=== PATIENT | male | born 1945 | race Caucasian/White ===

== ENCOUNTER 2017-11-25 11:01 | Inpatient (IN) ==
--- NOTE | 2017-11-25 11:52 | Emergency Department Note ---
Disposition Clinical Impression: Cellulitis Qualifiers: Site of cellulitis: unspecified site Qualified Code(s): L03.90 - Cellulitis, unspecified Disposition: Admitted As Inpatient Referrals: Samuel Dominique DO [Primary Care Provider] - Forms: ED Satisfaction Letter General Adult HPI - General Chief complaint: ED Extremity Problem,Nontraumatic Stated complaint: skin problem Time Seen by Provider: 11/25/17 11:10 Source: patient Mode of arrival: ambulatory Limitations: no limitations Nursing Notes Reviewed: Yes Vital Signs Reviewed: Yes - History of Present Illness HPI Narrative: 72 year old man who presents to ED with R knee and L elbow pain/swelling/drainage for 5 days that has been worsening. Said it started as a small "pimple" and has been getting larger and burst open with purulent drainage and expanding redness with streaking down leg and tightness of surrounding skin with increased heat. He was evaluated in [place] ED 2 days ago and given keflex for cellulitis and sent home. Denies trauma, insect bite, excoriation prior to symptoms starting. He says it has not improved in 2 days and that's why came here today. Says having pain with movement of R knee and trouble walking due to pain. R knee replacement 10 years ago. He additionally complains of subjective fever/chills. Says he has been told is diabetic but not on meds and trying to control with diet now. Pt Subjective Complaint: R leg pain Onset (ago): day(s) Location: right, lower extremity Radiation: non-radiation Pain Severity: moderate Pain Scale: 7 Quality: burning Consistency: Worsening Improves with: rest Worsens with: movement Associated symptoms: Reports: fever/chills Treatments Prior to Arrival: other (keflex 2 days) - Related Data Home Medications Medication Instructions Recorded Confirmed Buspirone HCl [Buspar] 10 mg PO BID 02/11/15 11/25/17 Oxybutynin Chloride [Ditropan Xl] 10 mg PO DAILY 02/11/15 11/25/17 Sertraline [Zoloft] 150 mg PO DAILY 02/11/15 11/25/17 Allopurinol [Zyloprim 300 MG] 300 mg PO DAILY 11/25/17 11/25/17 Iron Polysaccharide Complex [Pro 1 cap PO DAILY 11/25/17 11/25/17 Fe] Metoprolol Succinate 25 mg PO DAILY 11/25/17 11/25/17 Warfarin Sodium 10 mg PO DAILY 11/25/17 11/25/17 Previous Rx's Medication Instructions Recorded Aspirin 81 mg PO DAILY 30 Days tab.chew 02/14/15 Atorvastatin [Lipitor] 40 mg PO HS 30 Days tablet 02/14/15 Allergies Allergy/AdvReac Type Severity Reaction Status Date / Time No Known Allergies Allergy Verified 11/25/17 13:55 All systems ED: reviewed and negative except as stated. Constitutional: Reports: fever, chills Eyes: Denies: vision change Cardiovascular: Denies: chest pain Respiratory: Denies: dyspnea Gastrointestinal: Denies: abdominal pain Genitourinary: Denies: dysuria, frequency Musculoskeletal: Reports: joint swelling Integumentary: Reports: other (R knee, L elbow red, swollen, draining) Neurological: Denies: numbness, paresthesias Past Medical History - Past Medical History Medical history: Reports: arthritis, atrial fibrillation, hyperlipidemia, hypertension, myocardial infarction Surgical history: Reports: coronary bypass (CABG), knee replacement Psychiatric history: Reports: depression - Social History Smoking Status: Former smoker Smokeless Tobacco Status: No Alcohol use: Reports: none Drug use: Reports: none Physical Exam - General Limitations: no limitations General appearance: alert, in no apparent distress - Head Head exam: atraumatic, normocephalic, normal inspection - Eye Eye exam: Present: normal appearance - ENT ENT exam: mucous membranes moist - Neck Neck exam: Present: trachea midline - Chest Chest inspection: Present: normal inspection, symmetric chest wall rise - Respiratory Respiratory exam: Present: normal lung sounds bilaterally - Cardiovascular Cardiovascular exam: Present: regular rate, normal rhythm, normal heart sounds, +S1, +S2 - Extremities Exam Extremities exam: Present: tenderness, joint swelling, other (R knee 6x6 open, purulent draining, lesion with honey crusting, and expanding erythema and tender to palpation and increased heat and tightness surrounding joint. L elbow 2x2cm raised tender lesion with central scab without erythema or drainage. ). Absent: full ROM, pedal edema - Expanded Lower Extremity Exam Knee exam: Present: tenderness, swelling, erythema. Absent: normal inspection, full ROM - Neurological Exam Neurological exam: Present: alert - Psychiatric Psychiatric exam: Present: normal affect - Skin Skin exam: Present: warm, dry, erythema. Absent: intact Course Course Narrative: R knee drainage, heat, honey crusting treated with keflex x2 days along with L elbow raised lesion without drainage. Likely MRSA cellulitis and why keflex not improving lesion. Will I&D L elbow, CT R knee for possible septic joint along with esr, cbc in afebrile pt for Ayah criteria. 1220: wbc 7.1, hgb 8.4 (11.1 on 09/13/17), lactic 0.7, esr 96, Ayah criteria 1/4 septic arthritis unlikely. Will start IV vanc and zosyn now, blood cultures x2, wound culture and likely admit post CT. 1430: CT R knee 1. Status post right total knee arthroplasty with a trace nonspecific effusion. If there is clinical concern for septic arthritis please consider arthrocentesis. 2. Mild interface widening about the anteromedial aspect of the proximal tibial plateau compatible with early loosening. Infection is also in the differential but considered less likely. 3. Diffuse nonspecific subcutaneous fat stranding compatible with sterile edema versus cellulitis. No drainable fluid collection identified. I&D L elbow lesion with ~2ml purulent drainage. Will call ortho about Vital Signs Temperature 97.6 F 11/25/17 11:06 Pulse Rate 73 11/25/17 11:06 Respiratory Rate 16 11/25/17 11:06 Blood Pressure 128/66 11/25/17 11:06 O2 Sat by Pulse Oximetry 99 11/25/17 11:06 Temperature 97.6 F 11/25/17 11:06 Pulse Rate 73 11/25/17 11:06 Respiratory Rate 16 11/25/17 11:06 Blood Pressure 128/66 11/25/17 11:06 O2 Sat by Pulse Oximetry 99 11/25/17 11:06 Oxygen Delivery Oxygen Delivery Room Air Medical Decision Making - Lab Data Result diagrams: 11/25/17 11:45 11/25/17 11:45 Lab Results 11/25/17 11/25/17 11/25/17 Range/Units 11:45 11:45 11:45 WBC 7.1 (4.3-11.1) K/mcL RBC 3.31 L (4.19-5.50) M/mcL Hgb 8.4 L (12.9-16.9) g/dL Hct 27.4 L (37.5-50.1) % MCV 82.8 L (83.0-100.0) fL MCH 25.4 L (28.0-33.3) pg MCHC 30.7 L (31.6-35.5) g/dL RDW 16.8 H (11.5-14.5) % Plt Count 225 (140-400) K/mcL MPV 11.2 (9.4-12.4) fL Immature Gran % 0.6 (0-4) % Seg Neutrophils % 70.1 % Lymphocytes % 13.6 % Monocytes % 11.4 % Eosinophils % 3.7 % Basophils % 0.6 % Neutrophils # 5.0 (1.6-8.9) K/mcL Lymphocytes # 1.0 (0.6-4.6) K/mcL Monocytes # 0.8 (0.0-1.3) K/mcL Eosinophils # 0.3 (0.0-0.6) K/mcL Basophils # 0.0 (0.0-0.2) K/mcL ESR 96 H (0-10) mm/hr Sodium 139 (136-145) mEq/L Potassium 4.6 (3.5-5.1) mEq/L Chloride 106 (98-107) mEq/L Carbon Dioxide 27 (23-29) mEq/L BUN 25 H (8-23) mg/dL Creatinine 0.75 (0.70-1.30) mg/dL Est GFR ( Amer) > 60 (> 60) Est GFR (Non-Af Amer) > 60 (> 60) BUN/Creatinine Ratio 33 H (6-26) Glucose 104 (70-105) mg/dL Calculated Osmolality 293 (280-300) Lactic Acid (0.5-2.2) mmol/L Calcium 8.6 (8.6-10.3) mg/dL 11/25/17 Range/Units 12:53 WBC (4.3-11.1) K/mcL RBC (4.19-5.50) M/mcL Hgb (12.9-16.9) g/dL Hct (37.5-50.1) % MCV (83.0-100.0) fL MCH (28.0-33.3) pg MCHC (31.6-35.5) g/dL RDW (11.5-14.5) % Plt Count (140-400) K/mcL MPV (9.4-12.4) fL Immature Gran % (0-4) % Seg Neutrophils % % Lymphocytes % % Monocytes % % Eosinophils % % Basophils % % Neutrophils # (1.6-8.9) K/mcL Lymphocytes # (0.6-4.6) K/mcL Monocytes # (0.0-1.3) K/mcL Eosinophils # (0.0-0.6) K/mcL Basophils # (0.0-0.2) K/mcL ESR (0-10) mm/hr Sodium (136-145) mEq/L Potassium (3.5-5.1) mEq/L Chloride (98-107) mEq/L Carbon Dioxide (23-29) mEq/L BUN (8-23) mg/dL Creatinine (0.70-1.30) mg/dL Est GFR ( Amer) (> 60) Est GFR (Non-Af Amer) (> 60) BUN/Creatinine Ratio (6-26) Glucose (70-105) mg/dL Calculated Osmolality (280-300) Lactic Acid 0.7 (0.5-2.2) mmol/L Calcium (8.6-10.3) mg/dL
[2017-11-25] MEDS ORDERED: *HR* Morphine Immed Rel 30 MG TABLET PO ONE (11:53)
[2017-11-25] MEDS ORDERED: 0.9 % Sodium Chloride 1,000 ML IVC ONE (11:57)
[2017-11-25] MEDS ORDERED: Isovue-370 500 ML INFUS..BTL IV ONE (11:58)
[2017-11-25 12:00] LABS: Basophils % 0.6 %; Eosinophils # 0.3 K/mcL (0.0-0.6); Eosinophils % 3.7 %; Hematocrit 27.4 % (37.5-50.1); Hemoglobin 8.4 g/dL (12.9-16.9); Immature Granulocytes % 0.6 % (0-4); Lymphocytes % 13.6 %; Mean Corpuscular HGB Conc 30.7 g/dL (31.6-35.5); Mean Corpuscular Hemoglobin 25.4 pg (28.0-33.3); Mean Corpuscular Volume 82.8 fL (83.0-100.0); Mean Platelet Volume 11.2 fL (9.4-12.4); Monocytes # 0.8 K/mcL (0.0-1.3); Monocytes % 11.4 %; Platelet Count 225 K/mcL (140-400); Red Blood Count 3.31 M/mcL (4.19-5.50); Red Cell Distribution Width 16.8 % (11.5-14.5); Segmented Neutrophils % 70.1 %
[2017-11-25 12:13] LABS: BUN/Creatinine Ratio 33 (6-26); Blood Urea Nitrogen 25 mg/dL (8-23); Calcium 8.6 mg/dL (8.6-10.3); Carbon Dioxide 27 mEq/L (23-29); Chloride 106 mEq/L (98-107); Glucose 104 mg/dL (70-105); Osmolality,Calculated 293 (280-300); Potassium 4.6 mEq/L (3.5-5.1); Sodium 139 mEq/L (136-145); eGFR For Non-African Americans > 60 (> 60)
[2017-11-25] MEDS ORDERED: Vancomycin (wt based) 1,000 MG VIAL IV ONE (12:19)
[2017-11-25] MEDS ORDERED: Piperacillin/Tazobactam 3.375 GM in 0.9 % Sodium Chloride Mini Bag 100 ML IVPB ONE (12:19)
--- NOTE | 2017-11-25 12:38 | Emergency Department Note ---
Disposition Clinical Impression: Cellulitis Qualifiers: Site of cellulitis: unspecified site Qualified Code(s): L03.90 - Cellulitis, unspecified Disposition: Admitted As Inpatient Referrals: Samuel Dominique DO [Primary Care Provider] - Forms: ED Satisfaction Letter General Adult HPI - General Chief complaint: ED Extremity Problem,Nontraumatic Stated complaint: skin problem Time Seen by Provider: 11/25/17 11:10 Source: patient Mode of arrival: ambulatory Limitations: no limitations - History of Present Illness Location: right, lower extremity Pain Scale: 7 Quality: burning Improves with: rest Worsens with: movement Associated symptoms: Reports: fever/chills Treatments Prior to Arrival: other (keflex 2 days) - Related Data Home Medications Medication Instructions Recorded Confirmed Buspirone HCl [Buspar] 10 mg PO BID 02/11/15 11/25/17 Oxybutynin Chloride [Ditropan Xl] 10 mg PO DAILY 02/11/15 11/25/17 Sertraline [Zoloft] 150 mg PO DAILY 02/11/15 11/25/17 Allopurinol [Zyloprim 300 MG] 300 mg PO DAILY 11/25/17 11/25/17 Iron Polysaccharide Complex [Pro 1 cap PO DAILY 11/25/17 11/25/17 Fe] Metoprolol Succinate 25 mg PO DAILY 11/25/17 11/25/17 Warfarin Sodium 10 mg PO DAILY 11/25/17 11/25/17 Previous Rx's Medication Instructions Recorded Aspirin 81 mg PO DAILY 30 Days tab.chew 02/14/15 Atorvastatin [Lipitor] 40 mg PO HS 30 Days tablet 02/14/15 Allergies Allergy/AdvReac Type Severity Reaction Status Date / Time No Known Allergies Allergy Verified 11/25/17 13:55 Constitutional: Reports: fever, chills Eyes: Denies: vision change Cardiovascular: Denies: chest pain Respiratory: Denies: dyspnea Gastrointestinal: Denies: abdominal pain Genitourinary: Denies: dysuria, frequency Musculoskeletal: Reports: joint swelling Integumentary: Reports: other (R knee, L elbow red, swollen, draining) Neurological: Denies: numbness, paresthesias Past Medical History - Past Medical History Medical history: Reports: arthritis, atrial fibrillation, hyperlipidemia, hypertension, myocardial infarction Surgical history: Reports: coronary bypass (CABG), knee replacement Psychiatric history: Reports: depression - Social History Smoking Status: Former smoker Smokeless Tobacco Status: No Alcohol use: Reports: none Drug use: Reports: none Physical Exam - General Limitations: no limitations General appearance: alert, in no apparent distress Course Vital Signs Temperature 97.6 F 11/25/17 11:06 Pulse Rate 73 11/25/17 11:06 Respiratory Rate 16 11/25/17 11:06 Blood Pressure 128/66 11/25/17 11:06 O2 Sat by Pulse Oximetry 99 11/25/17 11:06 Temperature 97.6 F 11/25/17 11:06 Pulse Rate 73 11/25/17 11:06 Respiratory Rate 16 11/25/17 11:06 Blood Pressure 128/66 11/25/17 11:06 O2 Sat by Pulse Oximetry 99 11/25/17 11:06 Oxygen Delivery Oxygen Delivery Room Air Medical Decision Making - Lab Data Result diagrams: 11/25/17 11:45 11/25/17 11:45 Lab Results 11/25/17 11/25/17 11/25/17 Range/Units 11:45 11:45 11:45 WBC 7.1 (4.3-11.1) K/mcL RBC 3.31 L (4.19-5.50) M/mcL Hgb 8.4 L (12.9-16.9) g/dL Hct 27.4 L (37.5-50.1) % MCV 82.8 L (83.0-100.0) fL MCH 25.4 L (28.0-33.3) pg MCHC 30.7 L (31.6-35.5) g/dL RDW 16.8 H (11.5-14.5) % Plt Count 225 (140-400) K/mcL MPV 11.2 (9.4-12.4) fL Immature Gran % 0.6 (0-4) % Seg Neutrophils % 70.1 % Lymphocytes % 13.6 % Monocytes % 11.4 % Eosinophils % 3.7 % Basophils % 0.6 % Neutrophils # 5.0 (1.6-8.9) K/mcL Lymphocytes # 1.0 (0.6-4.6) K/mcL Monocytes # 0.8 (0.0-1.3) K/mcL Eosinophils # 0.3 (0.0-0.6) K/mcL Basophils # 0.0 (0.0-0.2) K/mcL ESR 96 H (0-10) mm/hr Sodium 139 (136-145) mEq/L Potassium 4.6 (3.5-5.1) mEq/L Chloride 106 (98-107) mEq/L Carbon Dioxide 27 (23-29) mEq/L BUN 25 H (8-23) mg/dL Creatinine 0.75 (0.70-1.30) mg/dL Est GFR ( Amer) > 60 (> 60) Est GFR (Non-Af Amer) > 60 (> 60) BUN/Creatinine Ratio 33 H (6-26) Glucose 104 (70-105) mg/dL Calculated Osmolality 293 (280-300) Lactic Acid (0.5-2.2) mmol/L Calcium 8.6 (8.6-10.3) mg/dL 11/25/17 Range/Units 12:53 WBC (4.3-11.1) K/mcL RBC (4.19-5.50) M/mcL Hgb (12.9-16.9) g/dL Hct (37.5-50.1) % MCV (83.0-100.0) fL MCH (28.0-33.3) pg MCHC (31.6-35.5) g/dL RDW (11.5-14.5) % Plt Count (140-400) K/mcL MPV (9.4-12.4) fL Immature Gran % (0-4) % Seg Neutrophils % % Lymphocytes % % Monocytes % % Eosinophils % % Basophils % % Neutrophils # (1.6-8.9) K/mcL Lymphocytes # (0.6-4.6) K/mcL Monocytes # (0.0-1.3) K/mcL Eosinophils # (0.0-0.6) K/mcL Basophils # (0.0-0.2) K/mcL ESR (0-10) mm/hr Sodium (136-145) mEq/L Potassium (3.5-5.1) mEq/L Chloride (98-107) mEq/L Carbon Dioxide (23-29) mEq/L BUN (8-23) mg/dL Creatinine (0.70-1.30) mg/dL Est GFR ( Amer) (> 60) Est GFR (Non-Af Amer) (> 60) BUN/Creatinine Ratio (6-26) Glucose (70-105) mg/dL Calculated Osmolality (280-300) Lactic Acid 0.7 (0.5-2.2) mmol/L Calcium (8.6-10.3) mg/dL Attestation Statement - Attestation Attestation: I examined this patient and my medical decision-making was reviewed with the Resident Physician. I agree with the documented findings, disposition and treatment plan as described except to the extent set forth below. 72 year old male presents to the ED with complaints of worsening cellutliis of his left elbow and right knee and is concerning staphyloccal infectoin and is a borderline diabetic. PAstnet has no new hardware in knee or elbow but state tht he does have hardware in the right knee from a previous arhtroplassty and in addition patient has been on outpatient antiboitoic with keflex for the past threee days and it is worsening. WE will obtain a CT scan to rule out septic joint or involvment of the hardware and start on vanc/zosyn and then admit tto medicine.
[2017-11-25] MEDS ORDERED: Lidocaine/EPI 1:100k 2% 20 ML VIAL INFILT ONE (12:42)
--- NOTE | 2017-11-25 14:59 | Emergency Department Note ---
Disposition Clinical Impression: Cellulitis Qualifiers: Site of cellulitis: unspecified site Qualified Code(s): L03.90 - Cellulitis, unspecified Disposition: Admitted As Inpatient Referrals: Samuel Dominique DO [Primary Care Provider] - Forms: ED Satisfaction Letter General Adult HPI - General Chief complaint: ED Extremity Problem,Nontraumatic Stated complaint: skin problem Time Seen by Provider: 11/25/17 11:10 Source: patient Mode of arrival: ambulatory Limitations: no limitations - History of Present Illness HPI Narrative: Add note to my previous note for procedure. Location: right, lower extremity Pain Scale: 7 Quality: burning Improves with: rest Worsens with: movement Associated symptoms: Reports: fever/chills Treatments Prior to Arrival: other (keflex 2 days) - Related Data Home Medications Medication Instructions Recorded Confirmed Buspirone HCl [Buspar] 10 mg PO BID 02/11/15 11/25/17 Oxybutynin Chloride [Ditropan Xl] 10 mg PO DAILY 02/11/15 11/25/17 Sertraline [Zoloft] 150 mg PO DAILY 02/11/15 11/25/17 Allopurinol [Zyloprim 300 MG] 300 mg PO DAILY 11/25/17 11/25/17 Iron Polysaccharide Complex [Pro 1 cap PO DAILY 11/25/17 11/25/17 Fe] Metoprolol Succinate 25 mg PO DAILY 11/25/17 11/25/17 Warfarin Sodium 10 mg PO DAILY 11/25/17 11/25/17 Previous Rx's Medication Instructions Recorded Aspirin 81 mg PO DAILY 30 Days tab.chew 02/14/15 Atorvastatin [Lipitor] 40 mg PO HS 30 Days tablet 02/14/15 Allergies Allergy/AdvReac Type Severity Reaction Status Date / Time No Known Allergies Allergy Verified 11/25/17 13:55 Constitutional: Reports: fever, chills Eyes: Denies: vision change Cardiovascular: Denies: chest pain Respiratory: Denies: dyspnea Gastrointestinal: Denies: abdominal pain Genitourinary: Denies: dysuria, frequency Musculoskeletal: Reports: joint swelling Integumentary: Reports: other (R knee, L elbow red, swollen, draining) Neurological: Denies: numbness, paresthesias Past Medical History - Past Medical History Medical history: Reports: arthritis, atrial fibrillation, hyperlipidemia, hypertension, myocardial infarction Surgical history: Reports: coronary bypass (CABG), knee replacement Psychiatric history: Reports: depression - Social History Smoking Status: Former smoker Smokeless Tobacco Status: No Alcohol use: Reports: none Drug use: Reports: none Physical Exam - General Limitations: no limitations General appearance: alert, in no apparent distress Course Course Narrative: Spoke to Dr Sanches (ortho) about possible infected hardware of R knee and he requested xr of R knee which is ordered. Spoke to hospitalist service for admiss ion who accepted admission. Vital Signs Temperature 97.6 F 11/25/17 11:06 Pulse Rate 73 11/25/17 11:06 Respiratory Rate 16 11/25/17 11:06 Blood Pressure 128/66 11/25/17 11:06 O2 Sat by Pulse Oximetry 99 11/25/17 11:06 Temperature 97.6 F 11/25/17 11:06 Pulse Rate 73 11/25/17 11:06 Respiratory Rate 16 11/25/17 11:06 Blood Pressure 128/66 11/25/17 11:06 O2 Sat by Pulse Oximetry 99 11/25/17 11:06 Oxygen Delivery Oxygen Delivery Room Air Procedures - Abscess I/D Consent obtained: verbal consent (followed with written) Site: upper extremity Side (if applicable): left Sedation/analgesia: none Local Anesthetic: lidocaine 2%, with bicarb Amount of Anesthesia Used (mL): 2 (ml) Technique: other (15 blade) Amount of fluid: 2 (ml) Irrigation: No Packing used?: none Complications: bleeding (~3ml, anticoagulated) Medical Decision Making - Lab Data Result diagrams: 11/25/17 11:45 11/25/17 11:45 Lab Results 11/25/17 11/25/17 11/25/17 Range/Units 11:45 11:45 11:45 WBC 7.1 (4.3-11.1) K/mcL RBC 3.31 L (4.19-5.50) M/mcL Hgb 8.4 L (12.9-16.9) g/dL Hct 27.4 L (37.5-50.1) % MCV 82.8 L (83.0-100.0) fL MCH 25.4 L (28.0-33.3) pg MCHC 30.7 L (31.6-35.5) g/dL RDW 16.8 H (11.5-14.5) % Plt Count 225 (140-400) K/mcL MPV 11.2 (9.4-12.4) fL Immature Gran % 0.6 (0-4) % Seg Neutrophils % 70.1 % Lymphocytes % 13.6 % Monocytes % 11.4 % Eosinophils % 3.7 % Basophils % 0.6 % Neutrophils # 5.0 (1.6-8.9) K/mcL Lymphocytes # 1.0 (0.6-4.6) K/mcL Monocytes # 0.8 (0.0-1.3) K/mcL Eosinophils # 0.3 (0.0-0.6) K/mcL Basophils # 0.0 (0.0-0.2) K/mcL ESR 96 H (0-10) mm/hr Sodium 139 (136-145) mEq/L Potassium 4.6 (3.5-5.1) mEq/L Chloride 106 (98-107) mEq/L Carbon Dioxide 27 (23-29) mEq/L BUN 25 H (8-23) mg/dL Creatinine 0.75 (0.70-1.30) mg/dL Est GFR ( Amer) > 60 (> 60) Est GFR (Non-Af Amer) > 60 (> 60) BUN/Creatinine Ratio 33 H (6-26) Glucose 104 (70-105) mg/dL Calculated Osmolality 293 (280-300) Lactic Acid (0.5-2.2) mmol/L Calcium 8.6 (8.6-10.3) mg/dL 11/25/17 Range/Units 12:53 WBC (4.3-11.1) K/mcL RBC (4.19-5.50) M/mcL Hgb (12.9-16.9) g/dL Hct (37.5-50.1) % MCV (83.0-100.0) fL MCH (28.0-33.3) pg MCHC (31.6-35.5) g/dL RDW (11.5-14.5) % Plt Count (140-400) K/mcL MPV (9.4-12.4) fL Immature Gran % (0-4) % Seg Neutrophils % % Lymphocytes % % Monocytes % % Eosinophils % % Basophils % % Neutrophils # (1.6-8.9) K/mcL Lymphocytes # (0.6-4.6) K/mcL Monocytes # (0.0-1.3) K/mcL Eosinophils # (0.0-0.6) K/mcL Basophils # (0.0-0.2) K/mcL ESR (0-10) mm/hr Sodium (136-145) mEq/L Potassium (3.5-5.1) mEq/L Chloride (98-107) mEq/L Carbon Dioxide (23-29) mEq/L BUN (8-23) mg/dL Creatinine (0.70-1.30) mg/dL Est GFR ( Amer) (> 60) Est GFR (Non-Af Amer) (> 60) BUN/Creatinine Ratio (6-26) Glucose (70-105) mg/dL Calculated Osmolality (280-300) Lactic Acid 0.7 (0.5-2.2) mmol/L Calcium (8.6-10.3) mg/dL
[2017-11-25] MEDS ORDERED: Naloxone 0.4 MG/ML INJ IVP PRN (15:14)
[2017-11-25] MEDS ORDERED: traMADol 50 MG TABLET PO PRN (15:14)
--- NOTE | 2017-11-25 15:31 | Internal Med History&Physical ---
Date of Encounter: 11/25/17 Time of Encounter: 15:21 Internal Medicine - H&P: HPI Chief complaint: pain, erythema and draining of the right knee. Admitted From: Home Plans for Post Hospital Care: Home History of present illness: Mr. Rai is a 72 year old male PMH of b/l total knee arthroplasty about 7 years ago, CAD, A.Fib, anxiety/depression, HLD, DM diet controlled and HTN. Patient presented to the ED today due to pain and purulent drainage from the right knee. Patient's reports that around Monday patient developed a blister on the right knee but that a couple of days later, he developed a second one and started having erythema, pain and a small purulent drainage from the right knee. She also reports that he developed another blister on the left elbow. The patient denies trauma to those areas. He reports subjective fever and chills for the past couple of days, as well decrease range of motion on the extremity due to pain. Patient denies nausea, vomiting. flu like symptoms as well as GI or symptoms. Past Med Surg Social Fam HX - Past Medical History Medical history: arthritis, atrial fibrillation, hyperlipidemia, hypertension, myocardial infarction Additional medical history: psoriasis Psychiatric history: depression - Past Surgical History Surgical History: coronary bypass (CABG), knee replacement Additional surgical history: bladder stimulator, right and left knee replacement - Social History Smoking Status: Former smoker Smokeless Tobacco Status: No Alcohol use: none Drug use: none - Family History Mother Living Status: Hx Family Cardiac Disorders: Yes (CHF) Internal Medicine - H&P: Meds Buspirone HCl [Buspar] 10 mg PO BID 02/11/15 [History] Oxybutynin Chloride [Ditropan Xl] 10 mg PO DAILY 02/11/15 [History] Sertraline [Zoloft] 150 mg PO DAILY 02/11/15 [History] Aspirin 81 mg PO DAILY 30 Days tab.chew 02/14/15 [Rx] Atorvastatin [Lipitor] 40 mg PO HS 30 Days tablet 02/14/15 [Rx] Allopurinol [Zyloprim 300 MG] 300 mg PO DAILY 11/25/17 [History] Iron Polysaccharide Complex [Pro Fe] 1 cap PO DAILY 11/25/17 [History] Metoprolol Succinate 25 mg PO DAILY 11/25/17 [History] Warfarin Sodium 10 mg PO DAILY 11/25/17 [History] Allergy/AdvReac Type Severity Reaction Status Date / Time No Known Allergies Allergy Verified 11/25/17 13:55 All Systems PM: A 10-system review of systems was performed and is negative for pertinent findings except as documented above in the HPI. - Constitutional Constitutional: chills, fever(s), no fatigue, no lethargy, no weakness, no weight gain - EENT Eyes: no floaters - Cardiovascular Cardiovascular ROS IM: no chest pain, no diaphoresis, no dyspnea, no dyspnea on exertion, no irregular heart rhythm, no lightheadedness, no palpitations, no syncope - Respiratory Respiratory: no cough, no dyspnea, no hemoptysis, no wheezing - Gastrointestinal Gastrointestinal: no abdominal pain, no diarrhea, no loose stools, no melena, no nausea, no vomiting - Genitourinary Genitourinary ROS male: no dysuria, no nocturia - Musculoskeletal Musculoskeletal ROS IM: joint swelling (right knee), limited range of motion (right knee ), no arthralgias, no back pain, no muscle weakness, no numbness - Integumentary Integumentary IM: erythema (right knee and right elbow.) - Neurological Neurological ROS: no confusion, no tremor(s), no weakness - Psychiatric Psychiatric: no anxiety - Endocrine Endocrine IM: no polydipsia, no polyphagia, no polyuria - Allergic/Immunologic Additional comments: rest of the review of system negative. - Constitutional Vitals: Temp Pulse Resp BP Pulse Ox 97.6 F 67 20 133/49 100 11/25/17 11:06 11/25/17 15:02 11/25/17 15:02 11/25/17 15:02 11/25/17 15:02 Exam: General: Alert and oriented x4. In mild/moderate distress due to pain in the right knee. Skin:erythma and small purulent in the right knee anteriorly HEENT: EOM, pupils equal, round and reactive. Cardiovascular: Irregularly, irregular, Normal S1 & S2, no rubs, murmurs or gallops. Lungs: clear to auscultation b/l. no wheezes or crackles. Abdomen: Obese, Soft, non-tender, no rigidity. NABS in all 4 quadrants Extremities: warmth, erythema and mildly edematous right knee. Neurological: Normal cognition and motor skills. Rest of the physical exam is non contributory Internal Med - H&P Results - Labs CBC & Chem 7: 11/25/17 11:45 11/25/17 11:45 Labs: Short CBC 11/25/17 Range/Units 11:45 WBC 7.1 (4.3-11.1) K/mcL Hgb 8.4 L (12.9-16.9) g/dL Hct 27.4 L (37.5-50.1) % Plt Count 225 (140-400) K/mcL Neutrophils # 5.0 (1.6-8.9) K/mcL BMP 11/25/17 11:45 Sodium 139 Potassium 4.6 Chloride 106 Carbon Dioxide 27 BUN 25 H Creatinine 0.75 Glucose 104 Calcium 8.6 - Impressions ITS Impressions Knee CT 11/25/17 11:58 IMPRESSION: 1. Status post right total knee arthroplasty with a trace nonspecific effusion. If there is clinical concern for septic arthritis please consider arthrocentesis. 2. Mild interface widening about the anteromedial aspect of the proximal tibial plateau compatible with early loosening. Infection is also in the differential but considered less likely. 3. Diffuse nonspecific subcutaneous fat stranding compatible with sterile edema versus cellulitis. No drainable fluid collection identified. D/ / Nestor Rubio MD / Nestor Rubio MD Interpreting Provider: Nestor Rubio MD - Assessment and plan (1) Cellulitis Current Visit: Yes Status: Acute Assessment and plan: cellulitis of the right knee with possible arthroplasty associated infection? Plan started on empiric broad spectrum antibiotics coverage. Blood culture ESR CRP Ortho consulted for possible knee revision, will follow recommendations x-ray of the knee 3 views. would culture and gram stain A1c as patient stated that he was told he is a diabetic but is controlling it with diet. tramadol 50mg/PO Q6HR PRN for pain control Qualifiers: Site of cellulitis: extremity Site of cellulitis of extremity: lower extremity Laterality: right Qualified Code(s): L03.115 - Cellulitis of right lower limb (2) Abscess of bursa of left elbow Current Visit: Yes Status: Acute Assessment and plan: s/p I&D. wound care (3) Atrial fibrillation Current Visit: No Status: Chronic Assessment and plan: rate controlled on metoprolol. PT/INR will resume wafarin following those results. If INR not therapeutic consider Hep drip as patient might knee arthroplasty revision. Qualifiers: Atrial fibrillation type: unspecified Qualified Code(s): I48.91 - Unspecified atrial fibrillation (4) CAD (coronary artery disease) Current Visit: No Status: Chronic Assessment and plan: As per patient . he had stent place. but she can't recall when. Continue aspirin and atorvastatin. Qualifiers: Coronary Disease-Associated Artery/Lesion type: bypass graft [place] vs. transplanted heart: [place] heart Associated angina: without angina Qualified Code(s): I25.810 - Atherosclerosis of coronary artery bypass graft(s) without angina pectoris (5) Hypertension Current Visit: Yes Status: Chronic Assessment and plan: BP well controlled. will continue metoprolol 25mg/PO daily. Qualifiers: Hypertension type: unspecified Qualified Code(s): I10 - Essential (primary) hypertension (6) Depression Current Visit: Yes Status: Chronic Assessment and plan: patient on buspirone and sertraline. Will continue home medications. Qualifiers: Depression Type: unspecified Qualified Code(s): F32.9 - Major depressive disorder, single episode, unspecified (7) DVT prophylaxis Current Visit: Yes Status: Acute Assessment and plan: Patient on warfarin. Will continue home medication. - Time Spent With Patient Total time spent is greater than 50% in coordination of care (as documented) at patient's floor/unit and/or counseling patient: 25 - 35 minutes
[2017-11-25 15:56] LABS: Activated Partial Thrombo Time 49.7 Seconds (26.0-36.0)
[2017-11-25] MEDS ORDERED: Vancomycin 1,750 MG in 0.9 % Sodium Chloride 250 ML IVPB SCH (16:00)
[2017-11-25 16:07] LABS: Prothrombin Time 45.3 Seconds (9.4-12.1)
[2017-11-25] MEDS: Metoprolol XL (24 HR) Succ 25 MG TAB.ER.24H PO SCH (16:32)
[2017-11-25] MEDS: Piperacillin/Tazobactam 3.375 GM in 0.9 % Sodium Chloride Mini Bag 100 ML IVPB SCH (21:04)
[2017-11-26 04:04] LABS: Basophils # 0.1 K/mcL (0.0-0.2); Basophils % 0.7 %; Eosinophils # 0.2 K/mcL (0.0-0.6); Eosinophils % 3.3 %; Hematocrit 25.3 % (37.5-50.1); Hemoglobin 7.6 g/dL (12.9-16.9); Immature Granulocytes % 0.4 % (0-4); Lymphocytes # 1.2 K/mcL (0.6-4.6); Mean Corpuscular Hemoglobin 24.9 pg (28.0-33.3); Mean Platelet Volume 11.4 fL (9.4-12.4); Monocytes # 0.8 K/mcL (0.0-1.3); Monocytes % 11.8 %; Neutrophils # 4.7 K/mcL (1.6-8.9); Platelet Count 205 K/mcL (140-400); Red Blood Count 3.05 M/mcL (4.19-5.50); Red Cell Distribution Width 16.7 % (11.5-14.5); Segmented Neutrophils % 66.8 %
[2017-11-26 04:22] LABS: BUN/Creatinine Ratio 24 (6-26); Blood Urea Nitrogen 21 mg/dL (8-23); Calcium 8.2 mg/dL (8.6-10.3); Carbon Dioxide 24 mEq/L (23-29); Chloride 106 mEq/L (98-107); Glucose 104 mg/dL (70-105); Osmolality,Calculated 285 (280-300); Phosphorous 3.1 mg/dL (2.7-4.5); Potassium 4.1 mEq/L (3.5-5.1); Sodium 136 mEq/L (136-145); eGFR For Non-African Americans > 60 (> 60)
[2017-11-26] MEDS: Piperacillin/Tazobactam 3.375 GM in 0.9 % Sodium Chloride Mini Bag 100 ML IVPB SCH ×3 (05:18→19:46)
--- NOTE | 2017-11-26 07:51 | Orthopedic Consult Note ---
Date of Encounter: 11/26/17 Time of Encounter: 07:49 History of Present Illness HPI: Mr. Rai is a 72 year old male Status post right total knee replacement approximately 10 years ago. Patient with drainage from right knee area for a few weeks. Patient being treated at [facility]. Physical exam Patient has a well-healed incision has small area of drainage just medial to the incision. Appears to be superficial in nature. The majority of the knee has no erythema and no swelling. Swelling and erythema just localized this area. X-rays and CT were reviewed show no acute abnormalities Patient will be recommended for IR aspiration to confirm whether there is fluid within the joint. At this point time recommendation continue IV antibiotics, we will reevaluate after results from interventional radiology are obtained. White count 7, we will order CRP and ESR is elevated Past Med Surg Social Fam HX - Past Medical History Medical history: arthritis, atrial fibrillation, hyperlipidemia, hypertension, myocardial infarction Additional medical history: psoriasis Psychiatric history: depression - Past Surgical History Surgical History: coronary bypass (CABG), knee replacement Additional surgical history: bladder stimulator, right and left knee replacement - Social History Smoking Status: Former smoker Smokeless Tobacco Status: No Alcohol use: none Drug use: none - Family History Father Hx Family Cardiac Disorders: Yes Mother Living Status: Hx Family Cardiac Disorders: Yes Medications and Allergies Buspirone HCl [Buspar] 10 mg PO BID 02/11/15 [History] Oxybutynin Chloride [Ditropan Xl] 10 mg PO DAILY 02/11/15 [History] Sertraline [Zoloft] 150 mg PO DAILY 02/11/15 [History] Aspirin 81 mg PO DAILY 30 Days tab.chew 02/14/15 [Rx] Atorvastatin [Lipitor] 40 mg PO HS 30 Days tablet 02/14/15 [Rx] Allopurinol [Zyloprim 300 MG] 300 mg PO DAILY 11/25/17 [History] Iron Polysaccharide Complex [Pro Fe] 1 cap PO DAILY 11/25/17 [History] Metoprolol Succinate 25 mg PO DAILY 11/25/17 [History] Warfarin Sodium 10 mg PO DAILY 11/25/17 [History] Allergy/AdvReac Type Severity Reaction Status Date / Time No Known Allergies Allergy Verified 11/25/17 13:55 All Systems Reviewed: The remainder of the systems were reviewed and are negative Physical Exam - Constitutional Vitals: Temp Pulse Resp BP Pulse Ox 98.2 F 65 16 107/52 95 11/26/17 06:57 11/26/17 06:57 11/26/17 06:57 11/26/17 06:57 11/26/17 06:57 Results - Labs Result Diagrams: 11/26/17 03:30 11/26/17 03:30 Labs: Abnormal lab results RBC 3.05 M/mcL (4.19-5.50) L 11/26/17 03:30 Hgb 7.6 g/dL (12.9-16.9) L 11/26/17 03:30 Hct 25.3 % (37.5-50.1) L 11/26/17 03:30 MCH 24.9 pg (28.0-33.3) L 11/26/17 03:30 MCHC 30.0 g/dL (31.6-35.5) L 11/26/17 03:30 RDW 16.7 % (11.5-14.5) H 11/26/17 03:30 ESR 96 mm/hr (0-10) H 11/25/17 11:45 PT 45.3 Seconds (9.4-12.1) H* 11/25/17 11:45 APTT 49.7 Seconds (26.0-36.0) H 11/25/17 11:45 POC Glucose 130 mg/dL (70-99) H 11/26/17 01:04 Calcium 8.2 mg/dL (8.6-10.3) L 11/26/17 03:30 H & H 11/25/17 11/26/17 Range/Units 11:45 03:30 Hgb 8.4 L 7.6 L (12.9-16.9) g/dL Hct 27.4 L 25.3 L (37.5-50.1) % All other labs normal. Consult Discharge Plan - Plan Referrals: Samuel Dominique DO [Primary Care Provider] -
[2017-11-26] MEDS: Aspirin Enteric Coated 81 MG Tablet PO SCH (08:24)
[2017-11-26] MEDS: Metoprolol XL (24 HR) Succ 25 MG TAB.ER.24H PO SCH (08:24)
--- NOTE | 2017-11-26 13:50 | Internal Med Progress Note ---
Hospitalist Progress Note - Encounter Date of Encounter: 11/26/17 Time of Encounter: 13:46 - Subjective Interval History: Patient seen and evaluated at bedside, reports that he is still having pain in the right knee, denies fever or chills. Denies nausea, vomiting, abdominal pain. No shortness of breath, chest pain or lightheadedness. - Exam Vitals: Temp Pulse Resp BP Pulse Ox 98.2 F 58 14 115/68 94 11/26/17 09:56 11/26/17 09:56 11/26/17 09:56 11/26/17 09:56 11/26/17 09:56 Exam: General: Alert and oriented x4. In mild/moderate distress due to pain in the right knee. HEENT: EOM, pupils equal, round and reactive. Cardiovascular: Irregularly, irregular, Normal S1 & S2, no rubs, murmurs or gallops. Lungs: clear to auscultation b/l. no wheezes or crackles. Abdomen: Obese, Soft, non-tender, no rigidity. NABS in all 4 quadrants Extremities: clean dressing at the right knee. Neurological: Normal cognition and motor skills. Rest of the physical exam is non contributory - Assessment and Plan (1) Cellulitis Current Visit: Yes Status: Acute Assessment and Plan: of the right knee. with purulent drainage on presentation Plan: IR consulted for IR guided arthrocentesis to r/o septic joint Wound culture grew Staph, pending sensitivity and specificity contact isolation, due to high suspicion for MRSA continue vancomicyn as per pharmacy protocol on piperacillin/tazobactam blood culture: no growth pending final report. On tramadol 50mg/PO Q6HR PRN for pain venous dupplex of the lower extr. (2) Abscess of bursa of left elbow Current Visit: Yes Status: Resolved Assessment and Plan: s/p I&D patient on empiric antibiotics coverage. (3) Atrial fibrillation Current Visit: No Status: Chronic Assessment and Plan: rate controlled. Patient on Warfarin was held yesterday due to INR of 4.0 repeat PT/INR will hold warfarin until IR has evaluated the patient If INR not therapeutic and patient needs to be anticaogulated will start patient on a Heparin drip (4) CAD (coronary artery disease) Current Visit: No Status: Chronic Assessment and Plan: Continue aspirin and Plavix (5) Hypertension Current Visit: Yes Status: Chronic Assessment and Plan: Blood pressure well controlled. Continue metoprolol. (6) Depression Current Visit: Yes Status: Chronic Assessment and Plan: Continue sertraline and buspirone. (7) Anemia Current Visit: Yes Status: Chronic Assessment and Plan: slight dropped in H&H. No active signs of bleeding Plan type and scree will consider transfusing if Hb <7 or Hct <23, patient hemodynamically unstable occult blood test. DVT Prophylaxis: patient anticoagulated on Warfarin and INR of 4. - Summary of Assessment and Plan Summary of Assessment and Plan: patient to remain in the hospital due to right knee cellulitis r/o septic joint on empiric antibiotics. - Time Spent with Patient Total time spent is greater than 50% in coordination of care (as documented) at patient's floor/unit and/or counseling patient: 25 - 35 minutes Plan of Care Discussed with: patient Internal Medicine: Result - Labs CBC & Chem 7: 11/26/17 03:30 11/26/17 03:30 Labs: Short CBC 11/26/17 Range/Units 03:30 WBC 7.1 (4.3-11.1) K/mcL Hgb 7.6 L (12.9-16.9) g/dL Hct 25.3 L (37.5-50.1) % Plt Count 205 (140-400) K/mcL Neutrophils # 4.7 (1.6-8.9) K/mcL BMP 11/26/17 03:30 Sodium 136 Potassium 4.1 Chloride 106 Carbon Dioxide 24 BUN 21 Creatinine 0.86 Glucose 104 Calcium 8.2 L - ABG Interpretation ABG results: PT/INR, D-dimer PT 45.3 Seconds (9.4-12.1) H* 11/25/17 11:45 - Impressions Impressions Knee CT 11/25/17 11:58 IMPRESSION: 1. Status post right total knee arthroplasty with a trace nonspecific effusion. If there is clinical concern for septic arthritis please consider arthrocentesis. 2. Mild interface widening about the anteromedial aspect of the proximal tibial plateau compatible with early loosening. Infection is also in the differential but considered less likely. 3. Diffuse nonspecific subcutaneous fat stranding compatible with sterile edema versus cellulitis. No drainable fluid collection identified. D/ / Nestor Rubio MD / Nestor Rubio MD Interpreting Provider: Nestor Rubio MD Knee X-Ray 11/25/17 14:43 IMPRESSION: Soft tissue swelling without acute osseous abnormality or evidence of hardware complication. D/ / Jon Eldridge MD / Jon Eldridge MD Interpreting Provider: Jon Eldridge MD Consult Discharge Plan - Plan Referrals: Samuel Dominique DO [Primary Care Provider] - (1) Cellulitis Qualifiers: Site of cellulitis: extremity Site of cellulitis of extremity: lower extremity Laterality: right Qualified Code(s): L03.115 - Cellulitis of right lower limb (3) Atrial fibrillation Qualifiers: Atrial fibrillation type: unspecified Qualified Code(s): I48.91 - Unspecified atrial fibrillation (4) CAD (coronary artery disease) Qualifiers: Coronary Disease-Associated Artery/Lesion type: bypass graft [place] vs. transplanted heart: [place] heart Associated angina: without angina Qualified Code(s): I25.810 - Atherosclerosis of coronary artery bypass graft(s) without angina pectoris (5) Hypertension Qualifiers: Hypertension type: unspecified Qualified Code(s): I10 - Essential (primary) hypertension (6) Depression Qualifiers: Depression Type: unspecified Qualified Code(s): F32.9 - Major depressive disorder, single episode, unspecified (7) Anemia Qualifiers: Anemia type: unspecified type Qualified Code(s): D64.9 - Anemia, unspecified
[2017-11-26 14:57] LABS: INR 2.8; Prothrombin Time 31.9 Seconds (9.4-12.1)
[2017-11-27 02:39] LABS: Basophils # 0.1 K/mcL (0.0-0.2); Basophils % 0.9 %; Eosinophils # 0.3 K/mcL (0.0-0.6); Eosinophils % 5.1 %; Hematocrit 27.5 % (37.5-50.1); Hemoglobin 8.3 g/dL (12.9-16.9); Immature Granulocytes % 0.4 % (0-4); Lymphocytes # 1.5 K/mcL (0.6-4.6); Lymphocytes % 21.7 %; Mean Corpuscular HGB Conc 30.2 g/dL (31.6-35.5); Mean Corpuscular Hemoglobin 25.3 pg (28.0-33.3); Mean Corpuscular Volume 83.8 fL (83.0-100.0); Mean Platelet Volume 10.6 fL (9.4-12.4); Monocytes # 0.9 K/mcL (0.0-1.3); Monocytes % 13.5 %; Neutrophils # 3.9 K/mcL (1.6-8.9); Platelet Count 217 K/mcL (140-400); Red Blood Count 3.28 M/mcL (4.19-5.50); Red Cell Distribution Width 16.4 % (11.5-14.5); Segmented Neutrophils % 58.4 %
[2017-11-27 02:56] LABS: BUN/Creatinine Ratio 23 (6-26); Blood Urea Nitrogen 20 mg/dL (8-23); Calcium 8.5 mg/dL (8.6-10.3); Carbon Dioxide 25 mEq/L (23-29); Chloride 107 mEq/L (98-107); Glucose 110 mg/dL (70-105); Magnesium 2.3 mg/dL (1.6-2.6); Osmolality,Calculated 289 (280-300); Phosphorous 3.3 mg/dL (2.7-4.5); Potassium 4.4 mEq/L (3.5-5.1); Sodium 138 mEq/L (136-145); eGFR For Non-African Americans > 60 (> 60)
[2017-11-27] MEDS: Piperacillin/Tazobactam 3.375 GM in 0.9 % Sodium Chloride Mini Bag 100 ML IVPB SCH (05:01)
--- NOTE | 2017-11-27 06:49 | Orthopedics Progress Note ---
Date of Encounter: 11/27/17 Time of Encounter: 06:48 Subjective Interval history: Patient seen this morning right knee examined, patient so a superficial abscess, difficult to understand if it is intra-articular. Patient's CRP is 45 Awaiting interventional radiology aspiration since there is not a lot of palpable fluid within the knee joint. Objective Vital signs: Vital Signs Temp Pulse Resp BP Pulse Ox 11/27/17 04:48 98.5 F 63 15 119/64 95 11/27/17 00:34 97.8 F 65 12 137/70 96 11/26/17 19:21 98.8 F 65 15 145/71 97 11/26/17 14:08 98.1 F 71 16 127/59 91 11/26/17 09:56 98.2 F 58 14 115/68 94 11/26/17 06:57 98.2 F 65 16 107/52 95 Intake and Output 11/26/17 11/26/17 11/27/17 15:59 23:59 07:59 Intake Total 580 / 580 650 / 650 250 / 250 Output Total 775 / 775 375 / 375 525 / 525 Balance -195 / -195 275 / 275 -275 / -275 Intake: IV Fluids 100 / 100 450 / 450 250 / 250 Zosyn 3.375 GM In 0.9 % Sodium 100 / 100 200 / 200 Chloride (Mini-Bag +) 100 ML @ 25 mls/hr IVPB Q8H FRED Rx#: [id number] Vancocin 1,500 MG In 0.9 % 250 / 250 250 / 250 Sodium Chloride 250 ML @ 166.67 mls/hr IVPB Q12H FRED Rx#: [id number] Oral 480 / 480 200 / 200 0 / 0 Output: Urine 775 / 775 375 / 375 525 / 525 Other: Meal Lunch KEEPING TRAY Percent of Meal Consumed 100% # Bowel Movements 0 0 Weight 122.6 kg Blood Glucose* 117 109 Patient Weight 11/27/17 23:59 Weight 122.6 kg - Labs CBC & BMP: 11/27/17 02:21 11/27/17 02:21 Labs: Abnormal lab results RBC 3.28 M/mcL (4.19-5.50) L 11/27/17 02:21 Hgb 8.3 g/dL (12.9-16.9) L 10/22/18 02:21 Hct 27.5 % (37.5-50.1) L 11/27/17 02:21 MCH 25.3 pg (28.0-33.3) L 11/27/17 02:21 MCHC 30.2 g/dL (31.6-35.5) L 11/27/17 02:21 RDW 16.4 % (11.5-14.5) H 11/27/17 02:21 ESR 96 mm/hr (0-10) H 11/25/17 11:45 PT 31.9 Seconds (9.4-12.1) H 11/26/17 13:52 APTT 49.7 Seconds (26.0-36.0) H 11/25/17 11:45 Glucose 110 mg/dL (70-105) H 11/27/17 02:21 POC Glucose 117 mg/dL (70-99) H 11/26/17 20:58 Calcium 8.5 mg/dL (8.6-10.3) L 11/27/17 02:21 C-Reactive Protein 45 mg/L (Less than 10) H 11/26/17 07:58 Vancomycin Trough 13 mcg/mL (5-10) H 11/27/17 02:21 Consult Discharge Plan - Plan Referrals: Samuel Dominique DO [Primary Care Provider] -
[2017-11-27 08:35] LABS: INR 2.2; Prothrombin Time 25.2 Seconds (9.4-12.1)
[2017-11-27] MEDS: Metoprolol XL (24 HR) Succ 25 MG TAB.ER.24H PO SCH (11:20)
[2017-11-27] MEDS: Aspirin Enteric Coated 81 MG Tablet PO SCH (11:37)
[2017-11-27 11:51] LABS: Estimated Average Glucose 117 mg/dl; Hemoglobin A1C 5.7 %
--- NOTE | 2017-11-27 12:22 | Internal Med Progress Note ---
Hospitalist Progress Note - Encounter Date of Encounter: 11/27/17 Time of Encounter: 12:20 - Subjective Interval History: Seen and evaluated at bedside, patient reports that the pain in his right knee has improved. Denies fevers or chills. - Exam Vitals: Temp Pulse Resp BP Pulse Ox 98 F 65 14 139/68 99 11/27/17 10:50 11/27/17 10:50 11/27/17 10:50 11/27/17 10:50 11/27/17 10:50 Exam: General: Alert and oriented x4. In minimal distress due to pain in the right knee. Cardiovascular: Irregularly, irregular, Normal S1 & S2, no rubs, murmurs or gallops. Lungs: clear to auscultation b/l. no wheezes or crackles. Abdomen: Obese, Soft, non-tender, no rigidity. NABS in all 4 quadrants Extremities: clean dressing at the right knee, no edema. Strength is 5 out of 5 upper and lower extremity bilaterally. Neurological: Normal cognition. CN II-XII intact Rest of the physical exam is non contributory - Assessment and Plan (1) Cellulitis Current Visit: Yes Status: Acute Assessment and Plan: MRSA the wound cultures. Plan Discontinue piperacillin tazobactam Continue vancomycin as per pharmacy protocol Patient scheduled for IR guided arthrocentesis Discussed with etiology for arthrocentesis, and they requested to reverse INR below 2. will reverse for above-mentioned procedure Transfuse 1 bag of FFP Repeat PTT INR 1 hour posttransfusion ID consulted for appropriate length of antibiotic coverage. (2) Abscess of bursa of left elbow Current Visit: Yes Status: Resolved Assessment and Plan: Status post incision and drainage Patient on vancomycin. (3) Atrial fibrillation Current Visit: No Status: Chronic Assessment and Plan: Rate controlled. Continue beta richar Warfarin has been held for IR guided arthrocentesis will resume full dose anticoagulation postprocedure (4) CAD (coronary artery disease) Current Visit: No Status: Chronic Assessment and Plan: Continue aspirin and statin (5) Hypertension Current Visit: Yes Status: Chronic Assessment and Plan: Blood pressure well controlled. Continue metoprolol. (6) Depression Current Visit: Yes Status: Chronic Assessment and Plan: Patient on sertraline and buspirone. Continue current management. No suicidal or homicidal ideation. (7) Anemia Current Visit: Yes Status: Chronic Assessment and Plan: H&H stable. No signs of active bleeding. We will continue to monitor Pending fecal occult blood test resort. DVT Prophylaxis: Patient anticoagulated with warfarin INR at 2.2. - Summary of Assessment and Plan Summary of Assessment and Plan: Patient to remain in the hospital to continue IV antibiotics. Pending IR guided arthrocentesis of the right knee. - Time Spent with Patient Total time spent is greater than 50% in coordination of care (as documented) at patient's floor/unit and/or counseling patient: 25 - 35 minutes Plan of Care Discussed with: patient (And the nurse) Internal Medicine: Result - Labs CBC & Chem 7: 11/27/17 02:21 11/27/17 02:21 Labs: Short CBC 11/27/17 Range/Units 02:21 WBC 6.7 (4.3-11.1) K/mcL Hgb 8.3 L (12.9-16.9) g/dL Hct 27.5 L (37.5-50.1) % Plt Count 217 (140-400) K/mcL Neutrophils # 3.9 (1.6-8.9) K/mcL BMP 11/27/17 02:21 Sodium 138 Potassium 4.4 Chloride 107 Carbon Dioxide 25 BUN 20 Creatinine 0.87 Glucose 110 H Calcium 8.5 L - ABG Interpretation ABG results: PT/INR, D-dimer PT 25.2 Seconds (9.4-12.1) H 11/27/17 08:03 Consult Discharge Plan - Plan Referrals: Samuel Dominique DO [Primary Care Provider] - (1) Cellulitis Qualifiers: Site of cellulitis: extremity Site of cellulitis of extremity: lower extremity Laterality: right Qualified Code(s): L03.115 - Cellulitis of right lower limb (3) Atrial fibrillation Qualifiers: Atrial fibrillation type: unspecified Qualified Code(s): I48.91 - Unspecified atrial fibrillation (4) CAD (coronary artery disease) Qualifiers: Coronary Disease-Associated Artery/Lesion type: bypass graft [place] vs. transplanted heart: [place] heart Associated angina: without angina Qualified Code(s): I25.810 - Atherosclerosis of coronary artery bypass graft(s) without angina pectoris (5) Hypertension Qualifiers: Hypertension type: unspecified Qualified Code(s): I10 - Essential (primary) hypertension (6) Depression Qualifiers: Depression Type: unspecified Qualified Code(s): F32.9 - Major depressive disorder, single episode, unspecified (7) Anemia Qualifiers: Anemia type: unspecified type Qualified Code(s): D64.9 - Anemia, unspecified
[2017-11-27] MEDS ORDERED: 0.9 % Sodium Chloride 250 ML ONE (13:20)
--- NOTE | 2017-11-27 15:07 | Infectious Disease Consult ---
Date of Encounter: 11/27/17 Time of Encounter: 14:40 Assessment and Plan (1) Cellulitis Status: Acute Assessment and plan: Location: Right knee. Causative organism: MRSA. Purulent. Etiology unclear. The patient did fall about a month ago, but denies any open lesions at that time. CT of the left knee showed a trace nonspecific effusion and early loosening of the hardware with subcutaneous fat stranding. ESR 96, CRP 45. No sepsis criteria noted. Blood cultures drawn 11/25/17 are NGTD x 2 sets. Ortho consulted. Recommend IR to evaluate for arthrocentesis. Please send fluid for cell count with differential, LDH, glucose, protein, and culture (aerobic, anaerobic, AFB, and fungal). Continue Vancomycin IV. Pharmacy to dose. Goal trough ~15. Duration of treatment depends on the clinical picture. Monitor renal function and for drug toxicity and dose-adjust antibiotics. Qualifiers: Site of cellulitis: extremity Site of cellulitis of extremity: lower extremity Laterality: right Qualified Code(s): L03.115 - Cellulitis of right lower limb (2) Hardware complicating wound infection Status: Acute Assessment and plan: Location: Right knee. CT of the right knee shows possible early loosening of the hardware: infectious vs. other. Given the right knee cellulitis, concern for infectious etiology. Ortho consulted. Await further recommendations. Continue antibiotics as above for now. Qualifiers: Encounter type: initial encounter Qualified Code(s): T84.7XXA - Infection and inflammatory reaction due to other internal orthopedic prosthetic devices, implants and grafts, initial encounter (3) Abscess of bursa of left elbow Status: Resolved Assessment and plan: Location: Left elbow. Etiology unclear: joint injection vs. trauma from fall vs. other. Status post left elbow injection 1 month ago. Status post bedside I & D in the ER. According to the notes. 2ml of pus removed, but no cultures were sent. Clinically, the elbow joint does not appear to be involved. Will defer imaging to the ortho team. Ortho consulted. (4) Anemia Status: Chronic Assessment and plan: Etiology unclear. Clinically no evidence of bleeding noted on exam. Further workup and management per the primary team. Qualifiers: Anemia type: unspecified type Qualified Code(s): D64.9 - Anemia, unspecified (5) Hypertension Status: Chronic Qualifiers: Hypertension type: unspecified Qualified Code(s): I10 - Essential (primary) hypertension (6) Atrial fibrillation Status: Chronic Qualifiers: Atrial fibrillation type: unspecified Qualified Code(s): I48.91 - Unspecified atrial fibrillation (7) CAD (coronary artery disease) Status: Chronic Qualifiers: Coronary Disease-Associated Artery/Lesion type: bypass graft [place] vs. transplanted heart: [place] heart Associated angina: without angina Qualified Code(s): I25.810 - Atherosclerosis of coronary artery bypass graft(s) without angina pectoris Infectious Disease HPI - Data of Consult Patient: new to practice Consult date: 11/27/17 Requesting Physician: Sonu Paiz MD Primary Care Provider: Samuel Dominique - Consult Narrative Reason for consult: Right knee cellulitis History of present illness: Mr. Rai is a 72 year old male with a past medical history of A. fib currently on warfarin, psoriatic arthritis not currently on any treatment, hyperlipidemia, hypertension, [place], status post remote history of bilateral total knee replacements one in February 2008 and the other in December 2008, CABG, and back stimulator. The patient was admitted to the hospital November 25 for right knee cellulitis and abscess of the left elbow. We are consulted November 27 for further recommendations for right knee cellulitis. Briefly, the patient 72-year-old male with past medical history as stated above. The patient presented to the emergency department with complaints of a fluid filled pustule to the left elbow and right knee redness, pain, and swelling. The patient is somewhat of a poor historian and the timeline regarding the events leading up to the hospitalization are somewhat unclear. Apparently, the patient fell about a month ago. He saw his PCP and had an injection of medication into the left elbow. He reports that the elbow was fine until last week when he noticed a "pimple" pop up on the back of the elbow. He reports that it was somewhat painful, but did not appear to affect the joint. He reports that last Monday, he has a pustule pop up on the right knee and he developed surrounding erythema, warmth, and pain. He saw his PCP and was placed on oral Keflex, but has progression of his symptoms. He presented to the ER for evaluation. Upon presentation to the ER, the patient was afebrile and hemo dynamically stable. He underwent a bedside I & D of the left elbow, but no cultures were obtained. A CT of the right knee showed trace nonspecific effusion and early loosening of the hardware with subcutaneous fat stranding. A right knee culture was obtained and is positive for MRSA. HE was started on Vanc and Zosyn and admitted to the hospital for further evaluation. Since admission, the patient has remained afebrile and hemodynamically stable without sepsis criteria. Ortho has been consulted and recommended evaluation by IR for aspiration of the right knee. The patient is currently receiving FFP to reverse his warfarin to undergo the procedure later today. He had a BLE DVT study that was negative. His Vanc trough is 13 today. Currently, the patient is on IV Zosyn. We've been asked to evaluate and make furhter recommendations. During my exam today, the patient endorses the history as stated above. He reports a few episodes of subjective fevers and chills. Denies headache, neck pain, dizziness, or weakness. Denies chest pain, shortness of breath, or cough. Denies nausea, vomiting, or diarrhea. Denies abdominal pain, urinary complaints, or appetite changes. Denies oral thrush or any other skin lesions/rashes except as stated above. The patient lives at home with his and two adult children. He is retired. He denies tobacco, alcohol, or illicit drug use. Denies recent travel. Denies any chronic infectious diseases. CC: Sonu Paiz MD Past Med Surg Social Fam HX - Past Medical History Attestation: Yes The following information was validated with the patient. Source: patient, old records reviewed, nursing notes reviewed Medical history: arthritis (psoriatic arthritis not currently on treatment), atrial fibrillation, hyperlipidemia, hypertension, myocardial infarction Additional medical history: psoriasis Psychiatric history: depression - Past Surgical History Surgical History: coronary bypass (CABG), knee replacement Additional surgical history: spinal cord stimulator, right and left knee replacement 2008 - Social History Smoking Status: Former smoker Smokeless Tobacco Status: No Alcohol use: none Drug use: none Occupational status: retired Current living situation: Home, With Family Activity Level: Independent ambulation Recent Out of Country Travel Within the Last 8 Weeks: No Exposure or Possible Exposure to Illness During Travel: No - Family History Father Hx Family Cardiac Disorders: Yes Mother Living Status: Hx Family Cardiac Disorders: Yes Infectious Disease-CN:Meds Buspirone HCl [Buspar] 10 mg PO BID 02/11/15 [History] Oxybutynin Chloride [Ditropan Xl] 10 mg PO DAILY 02/11/15 [History] Sertraline [Zoloft] 150 mg PO DAILY 02/11/15 [History] Aspirin 81 mg PO DAILY 30 Days tab.chew 02/14/15 [Rx] Atorvastatin [Lipitor] 40 mg PO HS 30 Days tablet 02/14/15 [Rx] Allopurinol [Zyloprim 300 MG] 300 mg PO DAILY 11/25/17 [History] Iron Polysaccharide Complex [Pro Fe] 1 cap PO DAILY 11/25/17 [History] Metoprolol Succinate 25 mg PO DAILY 11/25/17 [History] Warfarin Sodium 10 mg PO DAILY 11/25/17 [History] Allergy/AdvReac Type Severity Reaction Status Date / Time No Known Allergies Allergy Verified 11/25/17 13:55 All systems: reviewed and no additional remarkable complaints except as stated Exam - Constitutional Vitals: Temp Pulse Resp BP Pulse Ox 98.2 F 64 16 135/67 96 11/27/17 14:06 11/27/17 14:06 11/27/17 14:06 11/27/17 14:06 11/27/17 14:06 General appearance: cooperative, no acute distress, obese - Head Head exam: Present: atraumatic, normal inspection, normocephalic - Eye Eye exam: Present: EOMI, normal appearance, PERRL Additional comments: No subconjunctival hemorrhage noted. - ENT ENT exam: Present: mucous membranes moist - Neck Neck exam: Present: normal inspection - Respiratory Respiratory exam: Present: CTAB. Absent: rales, respiratory distress, rhonchi, wheezes - Cardiovascular Cardiovascular exam: Present: irregular rhythm, +S1, +S2. Absent: tachycardia - GI/Abdominal GI/Abdominal exam: Present: normal bowel sounds, soft. Absent: distended, tenderness - Extremities Exam Extremities exam: Present: joint swelling (right knee), tenderness (right knee). Absent: normal inspection (Erythema, warmth, tenderness, and swelling noted to the anterior/medial aspect of the right knee with area of fluctuance noted with serous drainage. Tenderness noted on palpation. ROM limited due to pain.) Additional comments: Area of fluctuance noted to the left posterior elbow with mild tenderness, but not erythema, warmth, or drainage noted. - Neurological Exam Neurological exam: Present: alert, oriented X3, no focal deficits - Psychiatric Psychiatric exam: Present: normal affect, normal mood - Skin Skin exam: Present: dry, intact, normal color, warm Infectious Disease CN: Results - Labs CBC & Chem 7: 11/27/17 02:21 11/27/17 02:21 Cultures: Cultures 11/25/17 11:26 Wound Culture - Final Right Knee Methicillin Resistant S.aureus 11/25/17 12:53 Blood Culture - Preliminary Peripheral Venipuncture Culture is incubating and being continuously monitored for growth. Final report to follow. 11/25/17 12:53 Blood Culture - Preliminary Peripheral Venipuncture Culture is incubating and being continuously monitored for growth. Final report to follow. Consult Discharge Plan - Plan Referrals: Samuel Dominique DO [Primary Care Provider] -
[2017-11-27 17:32] LABS: Source,Synovial Fluid right knee
[2017-11-27 19:43] LABS: Appearance,Synovial Fluid Hazy (Clear-Hazy); Color,Synovial Fluid Straw (Straw)
[2017-11-28 06:20] LABS: Basophils % 0.5 %; Eosinophils # 0.3 K/mcL (0.0-0.6); Hematocrit 27.4 % (37.5-50.1); Hemoglobin 8.4 g/dL (12.9-16.9); Immature Granulocytes % 0.6 % (0-4); Lymphocytes # 1.4 K/mcL (0.6-4.6); Lymphocytes % 16.4 %; Mean Corpuscular HGB Conc 30.7 g/dL (31.6-35.5); Mean Corpuscular Hemoglobin 25.5 pg (28.0-33.3); Mean Corpuscular Volume 83.3 fL (83.0-100.0); Mean Platelet Volume 11.2 fL (9.4-12.4); Monocytes # 0.8 K/mcL (0.0-1.3); Monocytes % 9.9 %; Neutrophils # 5.7 K/mcL (1.6-8.9); Platelet Count 236 K/mcL (140-400); Red Blood Count 3.29 M/mcL (4.19-5.50); Red Cell Distribution Width 16.4 % (11.5-14.5); Segmented Neutrophils % 68.6 %
[2017-11-28 06:27] LABS: INR 1.7; Prothrombin Time 18.9 Seconds (9.4-12.1)
[2017-11-28 06:56] LABS: BUN/Creatinine Ratio 21 (6-26); Blood Urea Nitrogen 16 mg/dL (8-23); Calcium 8.5 mg/dL (8.6-10.3); Carbon Dioxide 25 mEq/L (23-29); Chloride 105 mEq/L (98-107); Glucose 102 mg/dL (70-105); Magnesium 2.1 mg/dL (1.6-2.6); Osmolality,Calculated 285 (280-300); Sodium 137 mEq/L (136-145); eGFR For Non-African Americans > 60 (> 60)
[2017-11-28] MEDS: Aspirin Enteric Coated 81 MG Tablet PO SCH (08:31)
[2017-11-28] MEDS: Metoprolol XL (24 HR) Succ 25 MG TAB.ER.24H PO SCH (08:31)
--- NOTE | 2017-11-28 11:25 | Infectious Disease Progress No ---
Date of Encounter: 11/28/17 Time of Encounter: 10:35 - Assessment and Plan (1) Cellulitis Current Visit: Yes Status: Acute Location: Right knee. Causative organism: MRSA. Purulent. Etiology unclear. The patient did fall about a month ago, but denies any open lesions at that time. CT of the left knee showed a trace nonspecific effusion and early loosening of the hardware with subcutaneous fat stranding. ESR 96, CRP 45. No sepsis criteria noted. Blood cultures drawn 11/25/17 are NGTD x 2 sets. Ortho consulted. Recommend IR to evaluate for arthrocentesis. Status post arthrocentesis of the right knee 11/27/17 by interventional radiology. Small amount of fluid was able to be aspirated from the knee. T and C is 600 with 80% lymphocytes. Gram stain is negative. Culture is pending. This does not appear to be a septic joint. The patient does have an area of fluctuance overlying the right knee that may benefit from being opened and drained. We will discuss with orthopedics. Continue Vancomycin IV. Pharmacy to dose. Goal trough ~15. Duration of treatment depends on the clinical picture. Monitor renal function and for drug toxicity and dose-adjust antibiotics. Qualifiers: Site of cellulitis: extremity Site of cellulitis of extremity: lower extremity Laterality: right Qualified Code(s): L03.115 - Cellulitis of right lower limb (2) Hardware complicating wound infection Current Visit: Yes Status: Acute Location: Right knee. Status post total knee arthroplasty in 2008. CT of the right knee shows possible early loosening of the hardware: infectious vs. other. Given the right knee cellulitis, concern for infectious etiology, but arthrocentesis not revealing for septic joint.. Ortho consulted. Continue antibiotics as above for now. We will need to be aggressive with antibiotic therapy for cellulitis given the underlying hardware. Qualifiers: Encounter type: initial encounter Qualified Code(s): T84.7XXA - Infection and inflammatory reaction due to other internal orthopedic prosthetic devices, i mplants and grafts, initial encounter (3) Abscess of bursa of left elbow Current Visit: Yes Status: Resolved Location: Left elbow. Etiology unclear: joint injection vs. trauma from fall vs. other. Status post left elbow injection 1 month ago. Status post bedside I & D in the ER. According to the notes, 2ml of pus removed, but no cultures were sent. Clinically, the elbow joint does not appear to be involved. Will defer imaging to the ortho team. Ortho consulted and following. On exam today, there does appear to be reaccumulation of the fluid, but it does not appear to be painful or tender or warm to touch. The patient may benefit from a repeat I&D with packing of the wound prior to discharge. We will discuss with orthopedics team. (4) Anemia Current Visit: Yes Status: Chronic Etiology unclear. Clinically no evidence of bleeding noted on exam. Further workup and management per the primary team. Qualifiers: Anemia type: unspecified type Qualified Code(s): D64.9 - Anemia, unspecified (5) Hypertension Current Visit: Yes Status: Chronic Qualifiers: Hypertension type: unspecified Qualified Code(s): I10 - Essential (primary) hypertension (6) Atrial fibrillation Current Visit: No Status: Chronic Qualifiers: Atrial fibrillation type: unspecified Qualified Code(s): I48.91 - Unspecified atrial fibrillation (7) CAD (coronary artery disease) Current Visit: No Status: Chronic Qualifiers: Coronary Disease-Associated Artery/Lesion type: bypass graft [place] vs. transplanted heart: [place] heart Associated angina: without angina Qualified Code(s): I25.810 - Atherosclerosis of coronary artery bypass graft(s) without angina pectoris - Subjective Interval history: Patient seen and examined. No acute events noted overnight. Patient states overall he feels better today. Reports his pain is improved and the knee appears to be less red or angry. He denies any fevers or chills or rigors. Denies chest pain, shortness of breath, or cough. Denies any nausea or vomiting or diarrhea. Reports last bowel movement was last night. Denies any urinary complaints or abdominal pain. Denies any appetite changes. Denies any oral thrush or new skin lesions. States the not to his left elbow persists, but is not painful. Infect Dis PN-Objective Data - Labs CBC & Chem 7: 11/28/17 05:44 11/28/17 05:44 Labs: Laboratory Results - last 24 hr 11/26/17 11/26/17 11/26/17 03:30 14:21 16:15 WBC RBC Hgb Hct MCV MCH MCHC RDW Plt Count MPV Immature Gran % Seg Neutrophils % Lymphocytes % Monocytes % Eosinophils % Basophils % Neutrophils # Lymphocytes # Monocytes # Eosinophils # Basophils # PT INR Sodium Potassium Chloride Carbon Dioxide BUN Creatinine Est GFR ( Amer) Est GFR (Non-Af Amer) BUN/Creatinine Ratio Glucose POC Glucose 136 H Est Mean Plasma Glucose 117 Hemoglobin A1c 5.7 H Calculated Osmolality Calcium Phosphorus Magnesium Synovial Source Synovial Color Synovial Appearance Synovial Volume Synovial RBC Synovial Tot Nuc Cell Synovial Band Neuts Synovial Basophils Synovial Eosinophils Synovial Seg Neuts % Synovial Lymphocytes % Synovial Monocytes % Synovial Other Cells % Synovial Crystals Blood Type O NEGATIVE Antibody Screen NEGATIVE 11/27/17 11/27/17 11/27/17 05:44 11:33 17:12 WBC RBC Hgb Hct MCV MCH MCHC RDW Plt Count MPV Immature Gran % Seg Neutrophils % Lymphocytes % Monocytes % Eosinophils % Basophils % Neutrophils # Lymphocytes # Monocytes # Eosinophils # Basophils # PT INR Sodium Potassium Chloride Carbon Dioxide BUN Creatinine Est GFR ( Amer) Est GFR (Non-Af Amer) BUN/Creatinine Ratio Glucose POC Glucose 107 H 101 H Est Mean Plasma Glucose Hemoglobin A1c Calculated Osmolality Calcium Phosphorus Magnesium Synovial Source right knee Synovial Color Straw Synovial Appearance Hazy Synovial Volume 0.4 Synovial RBC 0.005 H Synovial Tot Nuc Cell 638 H Synovial Band Neuts Test Not Performed Synovial Basophils Test Not Performed Synovial Eosinophils Test Not Performed Synovial Seg Neuts % 8.0 Synovial Lymphocytes % 88.0 Synovial Monocytes % 4.0 Synovial Other Cells % Test Not Performed Synovial Crystals Blood Type Antibody Screen 11/27/17 11/28/17 11/28/17 17:12 05:44 05:44 WBC 8.3 RBC 3.29 L Hgb 8.4 L Hct 27.4 L MCV 83.3 MCH 25.5 L MCHC 30.7 L RDW 16.4 H Plt Count 236 MPV 11.2 Immature Gran % 0.6 Seg Neutrophils % 68.6 Lymphocytes % 16.4 Monocytes % 9.9 Eosinophils % 4.0 Basophils % 0.5 Neutrophils # 5.7 Lymphocytes # 1.4 Monocytes # 0.8 Eosinophils # 0.3 Basophils # 0.0 PT 18.9 H INR 1.7 Sodium Potassium Chloride Carbon Dioxide BUN Creatinine Est GFR ( Amer) Est GFR (Non-Af Amer) BUN/Creatinine Ratio Glucose POC Glucose Est Mean Plasma Glucose Hemoglobin A1c Calculated Osmolality Calcium Phosphorus Magnesium Synovial Source Synovial Color Synovial Appearance Synovial Volume Synovial RBC Synovial Tot Nuc Cell Synovial Band Neuts Synovial Basophils Synovial Eosinophils Synovial Seg Neuts % Synovial Lymphocytes % Synovial Monocytes % Synovial Other Cells % Synovial Crystals No Crystals Seen Blood Type Antibody Screen 11/28/17 05:44 WBC RBC Hgb Hct MCV MCH MCHC RDW Plt Count MPV Immature Gran % Seg Neutrophils % Lymphocytes % Monocytes % Eosinophils % Basophils % Neutrophils # Lymphocytes # Monocytes # Eosinophils # Basophils # PT INR Sodium 137 Potassium 4.0 Chloride 105 Carbon Dioxide 25 BUN 16 Creatinine 0.75 Est GFR ( Amer) > 60 Est GFR (Non-Af Amer) > 60 BUN/Creatinine Ratio 21 Glucose 102 POC Glucose Est Mean Plasma Glucose Hemoglobin A1c Calculated Osmolality 285 Calcium 8.5 L Phosphorus 3.0 Magnesium 2.1 Synovial Source Synovial Color Synovial Appearance Synovial Volume Synovial RBC Synovial Tot Nuc Cell Synovial Band Neuts Synovial Basophils Synovial Eosinophils Synovial Seg Neuts % Synovial Lymphocytes % Synovial Monocytes % Synovial Other Cells % Synovial Crystals Blood Type Antibody Screen Cultures: Cultures 11/27/17 17:12 Body Fluid Culture - Preliminary Synovial Fluid 11/25/17 11:26 Wound Culture - Final Right Knee Methicillin Resistant S.aureus 11/25/17 12:53 Blood Culture - Preliminary Peripheral Venipuncture Culture is incubating and being continuously renetta tored for growth. Final report to follow. 11/25/17 12:53 Blood Culture - Preliminary Peripheral Venipuncture Culture is incubating and being continuously monitored for growth. Final report to follow. Serology 11/27/17 11/27/17 Range/Units 17:12 17:12 Synovial Source right knee Synovial Color Straw (Straw) Synovial Appearance Hazy (Clear-Hazy) Synovial Volume 0.4 mL Synovial RBC 0.005 H (0.000 - 0.002) M/mcl Synovial Tot Nuc Cell 638 H (0-200) TNC/mcL Synovial Band Neuts Test Not Performed Synovial Basophils Test Not Performed Synovial Eosinophils Test Not Performed Synovial Seg Neuts % 8.0 % Synovial Lymphocytes % 88.0 % Synovial Monocytes % 4.0 % Synovial Other Cells % Test Not Performed Synovial Crystals No Crystals Seen (None Seen) - Impressions Impressions Joint Aspiration/Injection 11/27/17 06:50 IMPRESSION: Successful fluoroscopic-guided right knee aspiration. D/ / Henrique Castillo MD / Henrique Castillo MD Interpreting Provider: Henrique Castillo MD Exam - Constitutional Vitals: Temp Pulse Resp BP Pulse Ox 97.9 F 60 16 155/70 96 11/28/17 10:28 11/28/17 10:28 11/28/17 10:28 11/28/17 10:28 11/28/17 10:28 General appearance: cooperative, no acute distress, obese - Head Head exam: Present: atraumatic, normal inspection, normocephalic - Eye Eye exam: Present: EOMI, normal appearance, PERRL Pupils: Present: normal accommodation - ENT ENT exam: Present: mucous membranes moist - Neck Neck exam: Present: normal inspection - Respiratory Respiratory exam: Present: CTAB. Absent: rales, respiratory distress, rhonchi, wheezes - Cardiovascular Cardiovascular exam: Present: RRR, +S1, +S2 - GI/Abdominal GI/Abdominal exam: Present: distended (Obese), normal bowel sounds, soft. Absent: tenderness - Extremities Exam Extremities exam: Present: joint swelling (Mild, right knee), tenderness (Mild, right knee). Absent: normal inspection (Erythema noted to the anterior medial aspect of the right knee with small area of fluctuance with purulent drainage able to be expressed. Erythema has improved. Range of motion of the knee is improved. Fluid-filled pocket to the left elbow persists, but is not red or wa rm or tender to touch.), pedal edema - Neurological Exam Neurological exam: Present: alert, oriented X3, no focal deficits - Psychiatric Psychiatric exam: Present: normal affect, normal mood - Skin Skin exam: Present: dry, intact, normal color, warm Consult Discharge Plan - Plan Referrals: Samuel Dominique DO [Primary Care Provider] - - Attending Attestation I examined this patient and my medical decision-making was reviewed with the Resident Physician. I agree with the documented findings, disposition and treatment plan as described except to the extent set forth below.
--- NOTE | 2017-11-28 17:50 | Orthopedics Progress Note ---
Date of Encounter: 11/28/17 Time of Encounter: 17:47 - Assessment and Plan (1) Abscess of knee, right Current Visit: Yes Status: Acute IR aspiration - .4 mL - 638 NC, 88% Lymphocytes - no concern for septic joint at this time, no bacteria on pre-agrawal. At this point time recommendation continue IV antibiotics for supercifial abscess to medial knee. No obvious flutuance to left elbow or Right knee - no need to reaspirate at this time. IF reoccurs, may consider OR for I&D of Right knee. Start BID cleanses to elbow and knee, with coverage. (2) Abscess of forearm, left Current Visit: Yes Status: Acute Subjective Principal diagnosis: Right Knee Pain, Left Elbow Pain Interval history: Mr. Rai is a 72 year old male, admitted on 11/26 Status post right total knee replacement approximately 10 years ago. Patient with drainage from right knee area for a few weeks. Patient being treated at [facility]. Patient has full ROM of Right knee and Left elbow, pain has improved. Vitals stable. Vital Signs Temp Pulse Resp BP Pulse Ox 11/28/17 16:17 98.2 F 60 18 146/67 94 11/28/17 10:28 97.9 F 60 16 155/70 96 11/28/17 07:32 98.1 F 76 16 138/60 93 11/28/17 03:09 98 F 80 16 129/56 97 11/27/17 23:40 98 F 73 18 107/53 92 11/27/17 20:24 97.8 F 116 18 127/67 91 Intake and Output 11/28/17 11/28/17 11/28/17 07:59 15:59 23:59 Intake Total 900 / 900 240 / 240 250 / 250 Output Total 975 / 975 100 / 100 Balance -75 / -75 140 / 140 250 / 250 Intake: IV Fluids 250 / 250 250 / 250 Vancocin 1,500 MG In 0.9 % 250 / 250 250 / 250 Sodium Chloride 250 ML @ 166.67 mls/hr IVPB Q12H FRED Rx#: [id number] Oral 650 / 650 240 / 240 Output: Urine 975 / 975 100 / 100 Other: Meal Lunch Percent of Meal Consumed 100% # Bowel Movements 0 0 Weight 121.2 kg Blood Glucose* 114 120 140 Patient Weight 11/28/17 23:59 Weight 121.2 kg Afebrile. Short CBC 11/28/17 Range/Units 05:44 WBC 8.3 (4.3-11.1) K/mcL Hgb 8.4 L (12.9-16.9) g/dL Hct 27.4 L (37.5-50.1) % Plt Count 236 (140-400) K/mcL Neutrophils # 5.7 (1.6-8.9) K/mcL BMP 11/28/17 Range/Units 05:44 Sodium 137 (136-145) mEq/L Potassium 4.0 (3.5-5.1) mEq/L Chloride 105 (98-107) mEq/L Carbon Dioxide 25 (23-29) mEq/L BUN 16 (8-23) mg/dL Creatinine 0.75 (0.70-1.30) mg/dL Glucose 102 (70-105) mg/dL Calcium 8.5 L (8.6-10.3) mg/dL Physical exam Patient has a well-healed incision has small area of drainage just medial to the incision. Appears to be superficial in nature. The majority of the knee has no erythema and no swelling. Swelling and erythema just localized this area. X-rays and CT were reviewed show no acute abnormalities IR aspiration - .4 mL - 638 NC, 88% Lymphocytes - no concern for septic joint at this time, no bacteria on pre-agrawal. At this point time recommendation continue IV antibiotics for supercifial abscess to medial knee. No obvious flutuance to left elbow or Right knee - no n eed to reaspirate at this time. IF reoccurs, may consider OR for I&D of Right knee. Objective Vital signs: Vital Signs Temp Pulse Resp BP Pulse Ox 11/28/17 16:17 98.2 F 60 18 146/67 94 11/28/17 10:28 97.9 F 60 16 155/70 96 11/28/17 07:32 98.1 F 76 16 138/60 93 11/28/17 03:09 98 F 80 16 129/56 97 11/27/17 23:40 98 F 73 18 107/53 92 11/27/17 20:24 97.8 F 116 18 127/67 91 Intake and Output 11/28/17 11/28/17 11/28/17 07:59 15:59 23:59 Intake Total 900 / 900 240 / 240 250 / 250 Output Total 975 / 975 100 / 100 Balance -75 / -75 140 / 140 250 / 250 Intake: IV Fluids 250 / 250 250 / 250 Vancocin 1,500 MG In 0.9 % 250 / 250 250 / 250 Sodium Chloride 250 ML @ 166.67 mls/hr IVPB Q12H FRED Rx#: [id number] Oral 650 / 650 240 / 240 Output: Urine 975 / 975 100 / 100 Other: Meal Lunch Percent of Meal Consumed 100% # Bowel Movements 0 0 Weight 121.2 kg Blood Glucose* 114 120 140 Patient Weight 11/28/17 23:59 Weight 121.2 kg - Labs CBC & BMP: 11/28/17 05:44 11/28/17 05:44 Labs: Abnormal lab results RBC 3.29 M/mcL (4.19-5.50) L 11/28/17 05:44 Hgb 8.4 g/dL (12.9-16.9) L 11/28/17 05:44 Hct 27.4 % (37.5-50.1) L 11/28/17 05:44 MCH 25.5 pg (28.0-33.3) L 11/28/17 05:44 MCHC 30.7 g/dL (31.6-35.5) L 11/28/17 05:44 RDW 16.4 % (11.5-14.5) H 11/28/17 05:44 ESR 96 mm/hr (0-10) H 11/25/17 11:45 PT 18.9 Seconds (9.4-12.1) H 11/28/17 05:44 APTT 49.7 Seconds (26.0-36.0) H 11/25/17 11:45 POC Glucose 120 mg/dL (70-99) H 11/28/17 10:58 Hemoglobin A1c 5.7 % (-5.6) H 11/26/17 03:30 Calcium 8.5 mg/dL (8.6-10.3) L 11/28/17 05:44 C-Reactive Protein 45 mg/L (Less than 10) H 11/26/17 07:58 Synovial RBC 0.005 M/mcl (0.000-0.002) H 11/27/17 17:12 Synovial Tot Nuc Cell 638 TNC/mcL (0-200) H 11/27/17 17:12 Vancomycin Trough 14 mcg/mL (5-10) H 11/28/17 14:54 Consult Discharge Plan - Plan Referrals: Samuel Dominique DO [Primary Care Provider] -
--- NOTE | 2017-11-28 22:27 | Internal Med Progress Note ---
Hospitalist Progress Note - Encounter Date of Encounter: 11/28/17 Time of Encounter: 19:00 - Subjective Interval History: SUBJECTIVE: The patient feels good. He does have mild discomfort in the area of right knee and in the area of left elbow. There is a low bit of discharge from the medial aspect on the right knee. The left elbow abscess was drained recently. The patient underwent arthrocentesis (interventional radiology) yesterday. Denies chest pain. Denies difficulty breathing. Denies abdominal pain, nausea and vomiting. OBJECTIVE: Skin: There is mild redness in the area of right knee, anteriorly. ENMT: Oral/pharyngeal mucosa is normal in appearance. Eyes: Sclera is white. There is no discharge from eyes. Respiratory: Normal breath sounds; no crackles or wheezes. CV: Heart is regular; no gallop or murmur. GI: Abdomen is soft and not tender. There is no palpable mass or visceromegaly. Neuro: There is no focal deficits. ADDITIONAL DATA: His last cell count from right knee arthrocentesis is 600. 80% of lymphocytes. CBC shows hemoglobin of 8.4 with a WBC of 8.3 thousand. BMP is normal. ASSESSMENT AND PLAN: Abscess/cellulitis of right knee with abscess of left forearm. See notes from orthopedic surgery and infectious diseases. Culture of the drainage fluid obtained at admission is growing MRSA. The patient had arthrocentesis of right knee yesterdayvery small amount of fluid was obtained. Left elbow abscess was drained recently. We will continue IV vancomycin. Waiting for recommendations regarding further treatments from infectious diseases. Coronary artery disease/atrial fibrillation/hypertension. Will continue Toprol- XL with enteric coated aspirin and Lipitor. His Coumadin is on hold at this time. Anemia. Chronic. Stable at this time. - Exam Vitals: Temp Pulse Resp BP Pulse Ox 98.8 F 65 16 156/66 95 11/28/17 19:52 11/28/17 19:52 11/28/17 19:52 11/28/17 19:52 11/28/17 19:52 Exam: xx - Assessment and Plan (1) Cellulitis of knee, left Current Visit: Yes Status: Acute (2) Abscess of bursa of left elbow Current Visit: Yes Status: Resolved (3) CAD (coronary artery disease) Current Visit: No Status: Chronic (4) Atrial fibrillation Current Visit: No Status: Chronic (5) Hypertension Current Visit: Yes Status: Chronic (6) Anemia Current Visit: Yes Status: Chronic - Time Spent with Patient Total time spent is greater than 50% in coordination of care (as documented) at patient's floor/unit and/or counseling patient: 25 - 35 minutes Plan of Care Discussed with: patient Internal Medicine: Result - Labs CBC & Chem 7: 11/28/17 05:44 11/28/17 05:44 Labs: Short CBC 11/28/17 Range/Units 05:44 WBC 8.3 (4.3-11.1) K/mcL Hgb 8.4 L (12.9-16.9) g/dL Hct 27.4 L (37.5-50.1) % Plt Count 236 (140-400) K/mcL Neutrophils # 5.7 (1.6-8.9) K/mcL BMP 11/28/17 05:44 Sodium 137 Potassium 4.0 Chloride 105 Carbon Dioxide 25 BUN 16 Creatinine 0.75 Glucose 102 Calcium 8.5 L - ABG Interpretation ABG results: PT/INR, D-dimer PT 18.9 Seconds (9.4-12.1) H 11/28/17 05:44 Consult Discharge Plan - Plan Referrals: Samuel Dominique DO [Primary Care Provider] - (3) CAD (coronary artery disease) Qualifiers: Coronary Disease-Associated Artery/Lesion type: bypass graft [place] vs. transplanted heart: [place] heart Associated angina: without angina Qualified Code(s): I25.810 - Atherosclerosis of coronary artery bypass graft(s) without angina pectoris (4) Atrial fibrillation Qualifiers: Atrial fibrillation type: unspecified Qualified Code(s): I48.91 - Unspecified atrial fibrillation (5) Hypertension Qualifiers: Hypertension type: unspecified Qualified Code(s): I10 - Essential (primary) hypertension (6) Anemia Qualifiers: Anemia type: unspecified type Qualified Code(s): D64.9 - Anemia, unspecified
--- NOTE | 2017-11-29 09:35 | Infectious Disease Progress No ---
Date of Encounter: 11/29/17 Time of Encounter: 08:40 - Assessment and Plan (1) Cellulitis Status: Acute Location: Right knee. Causative organism: MRSA. Purulent. Etiology unclear. The patient did fall about a month ago, but denies any open lesions at that time. CT of the left knee showed a trace nonspecific effusion and early loosening of the hardware with subcutaneous fat stranding. ESR 96, CRP 45. No sepsis criteria noted. Blood cultures drawn 11/25/17 are NGTD x 2 sets. Ortho consulted. Recommend IR to evaluate for arthrocentesis. Status post arthrocentesis of the right knee 11/27/17 by interventional radiology. Small amount of fluid was able to be aspirated from the knee. TNC is 600 with 80% lymphocytes. Gram stain is negative. Culture is no growth. This does not appear to be a septic joint. No I & D indicated per the ortho team. Clinically, the patient is improved. Continue Vancomycin IV. Pharmacy to dose. Goal trough ~15. (day 5) Duration of treatment depends on the clinical picture, but likely a total of 14 days. Can transition to PO doxycycline 100mg PO BID to complete 14 day course. Treat through 12/08/17. Monitor renal function and for drug toxicity and dose-adjust antibiotics. Qualifiers: Site of cellulitis: extremity Site of cellulitis of extremity: lower extremity Laterality: right Qualified Code(s): L03.115 - Cellulitis of right lower limb (2) Hardware complicating wound infection Status: Acute Location: Right knee. Status post total knee arthroplasty in 2008. CT of the right knee shows possible early loosening of the hardware: infectious vs. other. Given the right knee cellulitis, concern for infectious etiology, but arthrocentesis not revealing for septic joint. Ortho consulted. Continue antibiotics as above for now. We will need to be aggressive with antibiotic therapy for cellulitis given the underlying hardware. Qualifiers: Encounter type: initial encounter Qualified Code(s): T84.7XXA - Infection and inflammatory reaction due to other internal orthopedic prosthetic devices, implants and grafts, initial encounter (3) Abscess of bursa of left elbow Status: Resolved Location: Left elbow. Etiology unclear: joint injection vs. trauma from fall vs. other. Status post left elbow injection 1 month ago. Status post bedside I & D in the ER. According to the notes, 2ml of pus removed, but no cultures were sent. Clinically, the elbow joint does not appear to be involved. Will defer imaging to the ortho team. Ortho consulted and following. No I & D indicated per the ortho team. (4) Anemia Status: Chronic Etiology unclear. Clinically no evidence of bleeding noted on exam. Further workup and management per the primary team. Qualifiers: Anemia type: unspecified type Qualified Code(s): D64.9 - Anemia, unspecified (5) Hypertension Status: Chronic Qualifiers: Hypertension type: unspecified Qualified Code(s): I10 - Essential (primary) hypertension (6) Atrial fibrillation Status: Chronic Qualifiers: Atrial fibrillation type: unspecified Qualified Code(s): I48.91 - Unspecified atrial fibrillation (7) CAD (coronary artery disease) Status: Chronic Qualifiers: Coronary Disease-Associated Artery/Lesion type: bypass graft [place] vs. transplanted heart: [place] heart Associated angina: without angina Qualified Code(s): I25.810 - Atherosclerosis of coronary artery bypass graft(s) without angina pectoris - Subjective Interval history: Patient seen and examined. No acute events noted overnight. Patient states overall he feels well today. Reports his pain is resolved and the knee appears to be less red or angry. He denies any fevers or chills or rigors. Denies chest pain, shortness of breath, or cough. Denies any nausea or vomiting or diarrhea. Reports last bowel movement was last night. Denies any urinary complaints or abdominal pain. Denies any appetite changes. Denies any oral thrush or new skin lesions. States the knot to his left elbow persists, but is not painful. Infect Dis PN-Objective Data - Labs CBC & Chem 7: 11/28/17 05:44 11/28/17 05:44 Labs: Laboratory Results - last 24 hr 11/27/17 11/27/17 11/28/17 19:04 20:40 07:37 POC Glucose 145 H 186 H 114 H Vancomycin Trough 11/28/17 11/28/17 10:58 14:54 POC Glucose 120 H Vancomycin Trough 14 H Cultures: Cultures 11/27/17 17:12 Body Fluid Culture - Preliminary Synovial Fluid 11/25/17 11:26 Wound Culture - Final Right Knee Methicillin Resistant S.aureus 11/25/17 12:53 Blood Culture - Preliminary Peripheral Venipuncture Culture is incubating and being continuously monitored for growth. Final report to follow. 11/25/17 12:53 Blood Culture - Preliminary Peripheral Venipuncture Culture is incubating and being continuously monitored for growth. Final report to follow. Serology 11/27/17 11/27/17 Range/Units 17:12 17:12 Synovial Source right knee Synovial Color Straw (Straw) Synovial Appearance Hazy (Clear-Hazy) Synovial Volume 0.4 mL Synovial RBC 0.005 H (0.000 - 0.002) M/mcl Synovial Tot Nuc Cell 638 H (0-200) TNC/mcL Synovial Band Neuts Test Not Performed Synovial Basophils Test Not Performed Synovial Eosinophils Test Not Performed Synovial Seg Neuts % 8.0 % Synovial Lymphocytes % 88.0 % Synovial Monocytes % 4.0 % Synovial Other Cells % Test Not Performed Synovial Crystals No Crystals Seen (None Seen) Exam - Constitutional Vitals: Temp Pulse Resp BP Pulse Ox 98.2 F 63 16 155/66 92 11/29/17 07:04 11/29/17 07:04 11/29/17 07:04 11/29/17 07:04 11/29/17 07:04 General appearance: cooperative, no acute distress, obese - Head Head exam: Present: atraumatic, normal inspection, normocephalic - Eye Eye exam: Present: EOMI, normal appearance, PERRL Pupils: Present: normal accommodation - ENT ENT exam: Present: mucous membranes moist - Neck Neck exam: Present: normal inspection - Respiratory Respiratory exam: Present: CTAB. Absent: rales, respiratory distress, rhonchi, wheezes - Cardiovascular Cardiovascular exam: Present: irregular rhythm, +S1, +S2. Absent: tachycardia - GI/Abdominal GI/Abdominal exam: Present: distended (obese), normal bowel sounds, soft. Absent: tenderness - Extremities Exam Extremities exam: Present: joint swelling (Trace, right knee), tenderness (Right knee). Absent: normal inspection (Erythema noted to the anteromedial right knee, improved. Open lesion noted with scant seropurulent drainage. Tenderness noted on palpation, but no fluctuance noted today. ROM of the knee improved.), pedal edema Additional comments: Left elbow fluid collection open and draining seropurulent drainage. No surrounding erythema or tenderness noted. - Neurological Exam Neurological exam: Present: alert, oriented X3, no focal deficits - Psychiatric Psychiatric exam: Present: normal affect, normal mood - Skin Skin exam: Present: dry, intact, normal color, warm Consult Discharge Plan - Plan Instructions: Methicillin Resistant Staphylococcus Aureus (DC), Abscess (GEN) Additional Instructions: FOLLOW-UP WITH ORTHOPEDICS (Dr. Sanches) -- IN ABOUT 1 WEEK.. PRO TIME TESTING -- MONTHLY; STARTING IN 5 DAYS.. Referrals: Jocelyn Dobbs, PAC [Physician Stacker Straightener] - 12/05/17 2:45 pm Samuel Dominique DO [Primary Care Provider] - 12/06/17 10:30 am Prescriptions: RX: Doxycycline 100 mg PO BID 9 Days #18 capsule - Attending Attestation I examined this patient and my medical decision-making was reviewed with the Resident Physician. I agree with the documented findings, disposition and ai tment plan as described except to the extent set forth below.
[2017-11-29] MEDS: Metoprolol XL (24 HR) Succ 25 MG TAB.ER.24H PO SCH (10:03)
[2017-11-29] MEDS: Aspirin Enteric Coated 81 MG Tablet PO SCH (10:03)
[2017-11-29 10:59] VITALS: BP 147/77
--- NOTE | 2017-11-29 14:25 | Discharge Summary ---
Orders not resulted at time of discharge: Pending orders 11/25/17 12:53 Culture,Blood [BC] Stat 11/26/17 13:45 Occult Blood, Gastric [BF] Routine 11/27/17 17:12 Culture,Anaerobic [RM] Stat Culture,Body Fluid [RM] Stat Date of Encounter: 11/29/17 Time of Encounter: 14:00 - Discharge Diagnosis (1) Cellulitis of knee, left Priority: Primary Status: Acute (2) Abscess of bursa of left elbow Priority: Primary Status: Resolved (3) CAD (coronary artery disease) Priority: Secondary Status: Chronic Qualifiers: Coronary Disease-Associated Artery/Lesion type: bypass graft [place] vs. transplanted heart: [place] heart Associated angina: without angina Qualified Code(s): I25.810 - Atherosclerosis of coronary artery bypass graft(s) without angina pectoris (4) Atrial fibrillation Priority: Secondary Status: Chronic Qualifiers: Atrial fibrillation type: unspecified Qualified Code(s): I48.91 - Unspecified atrial fibrillation (5) Hypertension Priority: Secondary Status: Chronic Qualifiers: Hypertension type: unspecified Qualified Code(s): I10 - Essential (primary) hypertension (6) Anemia Priority: Secondary Status: Chronic Qualifiers: Anemia type: unspecified type Qualified Code(s): D64.9 - Anemia, unspecified Hospital course: HOSPITAL COURSE: The patient is 72-year-old male. We admitted him to the hospital shortly after he had developed redness and swelling, as well as some drainage in the area of her right knee. He has some blister on his right knee preceding the symptoms/signs described above. The patient had total right knee arthroplasty done in 2008. He also presented to us a small abscess in the area of left elbow (likely infected bursitis). We presented this patient to orthopedic surgery and infectious diseases. Cultures were obtained. Left elbow abscess was drained. Arthrocentesis of right knee was done. We got a very small amount of fluid for analysis. The cell count was 600; mostly lymphocytes. The patient was treated with vancomycin. Right knee drainage fluid grew MRSA. Right knee redness and swelling nearly subsided. There is no more drainage from the medial aspect of the joint. The left elbow abscess/cellulitis are gone. We decided to continue treatment at home with oral doxycycline. There is no evidence for septic arthritis. CONDITION AT DISCHARGE: The patient feels good. There is no significant pain in the area of her right knee/left elbow. I cannot see any significant redness or swelling in those areas. The patient is able to ambulate on his own without difficulties. Skin: Free of rash and discoloration. Respiratory: Normal breath sounds with no crackles and wheezes bilaterally. CV: Heart is regular with no gallop or murmur. GI: Abdomen is flat and soft with no palpable mass or visceromegaly. Neuro exam: There is no focal deficits. Normal speech, swallowing and gait. SEE DISCHARGE ORDERS/MEDICATIONS.. The patient is to see the orthopedic surgeon in about 1 week. Discharge discussed with: patient, nurse, social work - Time Spent with Patient Total time spent providing and/or coordinating discharge services: Greater than 30 minutes (45 minutes..) - Discharge Medications Prescriptions: Doxycycline 100 mg PO BID 9 Days #18 capsule Home Medications: Buspirone HCl [Buspar] 10 mg PO BID 02/11/15 [History] Oxybutynin Chloride [Ditropan Xl] 10 mg PO DAILY 02/11/15 [History] Sertraline [Zoloft] 150 mg PO DAILY 02/11/15 [History] Aspirin 81 mg PO DAILY 30 Days tab.chew 02/14/15 [Rx] Atorvastatin [Lipitor] 40 mg PO HS 30 Days tablet 02/14/15 [Rx] Allopurinol [Zyloprim 300 MG] 300 mg PO DAILY 11/25/17 [History] Iron Polysaccharide Complex [Pro Fe] 1 cap PO DAILY 11/25/17 [History] Metoprolol Succinate 25 mg PO DAILY 11/25/17 [History] Warfarin Sodium 10 mg PO DAILY 11/25/17 [History] Doxycycline 100 mg PO BID 9 Days #18 capsule 11/29/17 [Rx] Allergies/Adverse Reactions: Allergy/AdvReac Type Severity Reaction Status Date / Time No Known Allergies Allergy Verified 11/25/17 13:55 Date of admission: 11/27/17 15:07 Primary care physician: Samuel Dominique Consults: 11/25/17 14:45 Consult to Orthopedic Surgery [CONS] Stat Consulting Provider: Orthopedics [facility] Reason for Consult: septic joint with hardware Time Notified: 14:45 Call Completed: Yes 11/25/17 16:54 Consult to Pastoral Services [CONS] Routine Comment: 11/26/17 07:45 Consult to Interventional Radiology [CONS] Routine Consulting Provider: Radiology Interventional [facility] Reason for Consult: Right knee aspiration Call Completed: No 11/27/17 10:24 Consult to Infectious Diseases [CONS] Routine Consulting Provider: Infectious Disease Mary Reason for Consult: MRSA on the right knee. Hx of b/l arthroplasty. possible septic joint Call Completed: No Discharging clinician: Frank Soliman Anticipated date of discharge: 11/29/17 - Constitutional Vitals: Temp Pulse Resp BP Pulse Ox 97.9 F 58 16 147/77 94 11/29/17 10:52 11/29/17 10:52 11/29/17 10:52 11/29/17 10:52 11/29/17 10:52 General appearance: Present: A&O X 3, no acute distress, answers questions appropriately Exam: xx - Patient Status Disposition: Home, Self-Care Condition: Fair Functional capacity at discharge: independent ambulation Overall status at discharge: patient is progressing back to baseline - Discharge Instructions Instructions: Methicillin Resistant Staphylococcus Aureus (DC), Abscess (GEN) Follow Up With: Jocelyn Dobbs PAC [Physician Director Of Golf] - 12/05/17 2:45 pm Samuel Dominique DO [Primary Care Provider] - 12/06/17 10:30 am Additional Instructions: FOLLOW-UP WITH ORTHOPEDICS (Dr. Sanches) -- IN ABOUT 1 WEEK.. PRO TIME TESTING -- MONTHLY; STARTING IN 5 DAYS.. - Diet and Activity Activity: resume usual activities as tolerated Diet: low fat, low cholesterol - VTE Reasons for not Prescribing Prophylaxis: Not indicated-Anticoagulated or INR therapeutic Deep Vein Thrombosis/Pulmonary Embolism Present on Admission: No
[2017-11-29] MEDS ORDERED: Aminoglycoside Consult 1 EACH MC ONE (15:33)
== END 2017-11-29 15:34 | disposition home or self-care (01) | DRG 603 ==
LOC: EMEROOARM 11:01 → 3ANU 11:01 → SUATTDRO 11-27 15:07
PROVIDERS: ADMIT Internal Medicine; ATTEND Internal Medicine

== ENCOUNTER 2018-08-01 01:02 | Inpatient (IN) ==
[2018-08-01] MEDS ORDERED: Acetaminophen 325 MG TABLET PO PRN (03:19)
[2018-08-01] MEDS ORDERED: Naloxone 0.4 MG/ML INJ IVP PRN (03:19)
[2018-08-01] MEDS ORDERED: Ondansetron 4 MG/2 ML VIAL IVP PRN (03:25)
[2018-08-01] MEDS: Pantoprazole 40 MG in 0.9 % Sodium Chloride Mini Bag 100 ML IVC SCH ×4 (04:15→18:40)
--- NOTE | 2018-08-01 04:18 | Internal Med History&Physical ---
Date of Encounter: 08/01/18 Time of Encounter: 02:45 Internal Medicine - H&P: HPI Chief complaint: exertional dyspnea and chest; anemia; melena Admitted From: Hospital to Hospital Transfer Plans for Post Hospital Care: Home History of present illness: Mr. Rai is a 73 year old male who presents in transfer from [facility] ER for concerns of coagulopathy secondary to Coumadin and profound anemia. He presented to the ER there with complaints of chest pain/epigastric pain, extreme fatigue, weakness, and exertional dyspnea with chest pain. He was found to have evidence of profound anemia, guaiac positive stool, and INR of 13. He received 2 units of blood at [facility] and a transfer request was made to Center for ongoing care and workup. Upon arrival to the intensive care unit, I saw patient shortly after he arrived. He has no chest pain or shortness of breath at this time. He denies any gross hematemesis or hemoptysis. He denies any hematochezia. However, he has had recurrent bouts of melena. He states his first symptoms he noticed were about 3 months ago, and he was noted to have significant dyspnea, fatigue, and occasional chest pain with any exertion. Symptoms were relieved with rest. He denies any fevers, chills, productive cough or sputum, vomiting, or diarrhea. Of note, patient did receive Vitamin K orally 10 mg and 2 units PRBC transfusion at [facility]. Past Med Surg Social Fam HX - Past Medical History Attestation: Yes The following information was validated with the patient. Source: patient, obtained from family Medical history: arthritis, atrial fibrillation, hyperlipidemia, hypertension, myocardial infarction Additional medical history: psoriasis Psychiatric history: depression - Past Surgical History Surgical History: coronary bypass (CABG), knee replacement Additional surgical history: spinal cord stimulator, right and left knee replacement 2009 - Social History Smoking Status: Former smoker Smokeless Tobacco Status: No Alcohol use: none Drug use: none Current living situation: Home, With Family Activity Level: Independent ambulation Recent Out of Country Travel Within the Last 8 Weeks: No - Family History Father Hx Family Cardiac Disorders: Yes Mother Living Status: Hx Family Cardiac Disorders: Yes Internal Medicine - H&P: Meds Buspirone HCl [Buspar] 10 mg PO BID 02/11/15 [History] Oxybutynin Chloride [Ditropan Xl] 10 mg PO DAILY 02/11/15 [History] Sertraline [Zoloft] 150 mg PO DAILY 02/11/15 [History] Aspirin 81 mg PO DAILY 30 Days tab.chew 02/14/15 [Rx] Atorvastatin [Lipitor] 40 mg PO HS 30 Days tablet 02/14/15 [Rx] Allopurinol [Zyloprim 300 MG] 300 mg PO DAILY 11/25/17 [History] Iron Polysaccharide Complex [Pro Fe] 1 cap PO DAILY 11/25/17 [History] Metoprolol Succinate 25 mg PO DAILY 11/25/17 [History] Warfarin Sodium 10 mg PO DAILY 11/25/17 [History] Allergy/AdvReac Type Severity Reaction Status Date / Time No Known Allergies Allergy Verified 11/25/17 13:55 - Constitutional Constitutional: fatigue, malaise, weakness, no chills, no fever(s), no falls - EENT Eyes: no blurry vision, no change in vision Ears: no ear pain, no tinnitus Nose, mouth and throat: no nasal congestion, no sinus pressure, no sore throat - Cardiovascular Cardiovascular ROS IM: chest pain, dyspnea, dyspnea on exertion, lightheadedness, no edema, no orthopnea, no paroxysmal nocturnal dyspnea, no syncope - Respiratory Respiratory: dyspnea on exertion, no cough, no hemoptysis, no chest congestion, no excessive phlegm production, no change in phlegm color, no pain with cough - Gastrointestinal Gastrointestinal: melena, no abdominal pain, no coffee ground emesis, no diarrhea, no hematemesis, no hematochezia, no vomiting - Genitourinary Genitourinary ROS male: no dysuria, no flank pain, no hematuria - Musculoskeletal Musculoskeletal ROS IM: no arthralgias, no back pain - Integumentary Integumentary IM: unusual bruising, no rash, no jaundice - Neurological Neurological ROS: no disequilibrium, no dizziness, no focal weakness, no frequent falls, no headache(s) - Psychiatric Psychiatric: no anxiety, no depression - Endocrine Endocrine IM: no heat intolerance, no polydipsia, no polyphagia, no polyuria - Hematologic/Lymphatic Hematologic/Lymphatic: easy bruising - Allergic/Immunologic Allergic/Immunologic: no wheezing, no GI upset with certain foods - Constitutional Vitals: Temp Pulse Resp BP Pulse Ox 98.2 F 84 18 125/54 100 08/01/18 03:12 08/01/18 03:12 08/01/18 03:12 08/01/18 03:12 08/01/18 03:12 General appearance: Present: cooperative, A&O X 3, pleasant, no acute distress, answers questions appropriately Exam: see below - Head Head exam: Present: atraumatic, normal inspection - Eye Eye exam: Present: EOMI, normal appearance, PERRL. Absent: scleral icterus Pupils: Present: normal accommodation - ENT ENT exam: Present: mucous membranes dry, normal exam, normal oropharynx - Neck Neck exam general surgery: Present: full ROM, supple, trachea midline. Absent: tenderness, nuchal rigidity, thyromegaly - Respiratory Respiratory exam: Present: CTAB. Absent: chest wall tenderness, rales, respiratory distress, rhonchi, wheezes - Cardiovascular Cardiovascular exam: Present: distant heart sounds, RRR, +S1, +S2, systolic murmur (grade 1). Absent: diastolic murmur - GI/Abdominal GI/Abdominal exam: Present: normal bowel sounds, soft, tenderness (epigastric). Absent: guarding, hepatomegaly, mass, rebound, splenomegaly - Extremities Exam Extremities exam: Present: full ROM, warm, radial pulses palpable and symmetrical. Absent: calf tenderness, joint swelling, normal capillary refill ( delayed ~ 4 seconds), pedal edema, tenderness - Back Exam Back exam: Present: normal inspection. Absent: CVA tenderness (L), CVA tenderness (R) - Neurological Exam Neurological exam: Present: alert, CN II-XII intact, oriented X3, no focal deficits, strengths equal and symetr throughout - Psychiatric Psychiatric exam: Present: normal affect, normal mood - Skin Skin exam: Present: dry, intact, warm Internal Med - H&P Results - Labs Labs: I reviewed his labs from [facility] and include the following: WBC 6.95 Hemoglobin 5.5 Hematocrit 18.3 Platelets 263 Sodium 140 Potassium 5.0 Chloride 111 Carbon Dioxide 24 Bun 37 Glucose 109 Creatinine 1.01 INR 13.93 - EKG Data -: EKG Interpreted by Myself EKG shows normal: sinus rhythm - EKG Data Prior EKG available for review: no EKG comments: 08/01/18 04:27 NSR; no acute changes - Assessment and Plan (1) UGI bleed Current Visit: Yes Status: Suspected Assessment and plan: 1. Will keep npo. 2. Start Protonix drip. 3. Trend hemoglobin and hematocrit. 4. Consult GI for EGD. 5. Transfuse PRBC's. 6. Monitor on telemetry. (2) Warfarin-induced coagulopathy Current Visit: Yes Status: Acute Assessment and plan: 1. Patient received Vitamin K 10 mg orally at [facility]; repeat 10 mg IV dose now. 2. Repeat STAT PT/INR. 3. May need FFP and/or Kcentra. (3) Atrial fibrillation Current Visit: Yes Status: Chronic Assessment and plan: 1. Currently in NSR. 2. Monitor on telemetry. 3. Resume home meds/BB when clinically stable and no longer bleeding. Qualifiers: Atrial fibrillation type: paroxysmal Qualified Code(s): I48.0 - Paroxysmal atrial fibrillation (4) CAD (coronary artery disease) Current Visit: Yes Status: Chronic Assessment and plan: 1. Trend troponins and KEG's. 2. No history to suggest unstable angina; anginal symptoms aggravated by acute anemia -- transfuse PRBC to stabilize GI bleed and treat angina. Qualifiers: Coronary Disease-Associated Artery/Lesion type: bypass graft [place] vs. transplanted heart: [place] heart Associated angina: with stable angina Qualified Code(s): I25.708 - Atherosclerosis of coronary artery bypass graft(s), unspecified, with other forms of angina pectoris (5) DVT prophylaxis Current Visit: Yes Status: Acute Assessment and plan: 1. EPCD's.
[2018-08-01 04:51] LABS: Basophils # 0.1 K/mcL (0.0-0.2); Basophils % 0.7 %; Eosinophils # 0.2 K/mcL (0.0-0.6); Eosinophils % 2.4 %; Hematocrit 20.3 % (37.5-50.1); Hemoglobin 6.2 g/dL (12.9-16.9); Immature Granulocytes % 0.7 % (0-4); Lymphocytes # 1.6 K/mcL (0.6-4.6); Lymphocytes % 22.3 %; Mean Corpuscular HGB Conc 30.5 g/dL (31.6-35.5); Mean Corpuscular Hemoglobin 25.8 pg (28.0-33.3); Mean Corpuscular Volume 84.6 fL (83.0-100.0); Mean Platelet Volume 9.7 fL (9.4-12.4); Monocytes # 0.9 K/mcL (0.0-1.3); Neutrophils # 4.2 K/mcL (1.6-8.9); Platelet Count 233 K/mcL (140-400); Red Cell Distribution Width 15.8 % (11.5-14.5); Segmented Neutrophils % 60.9 %
[2018-08-01 05:07] LABS: BUN/Creatinine Ratio 40 (6-26); Blood Urea Nitrogen 34 mg/dL (8-23); Calcium 8.4 mg/dL (8.6-10.3); Carbon Dioxide 22 mEq/L (23-29); Chloride 109 mEq/L (98-107); Glucose 105 mg/dL (70-105); Magnesium 2.2 mg/dL (1.6-2.6); Osmolality,Calculated 294 (280-300); Potassium 4.6 mEq/L (3.5-5.1); Sodium 138 mEq/L (136-145); eGFR For African Americans > 60 (> 60); eGFR For Non-African Americans > 60 (> 60)
[2018-08-01 05:09] LABS: INR 9.5; Prothrombin Time 108.4 Seconds (9.4-12.1)
[2018-08-01] MEDS ORDERED: HUM PROTHROMBIN CPLX(PCC)4FACT 5,000 UNIT in Water for inj. (sterile) 200 ML IVPB ONE (05:14)
[2018-08-01] MEDS ORDERED: 0.9 % Sodium Chloride 250 ML ONE (05:55)
--- NOTE | 2018-08-01 08:05 | Event Note ---
Date of Encounter: 08/01/18 Time of Encounter: 07:54 Patient seen and examined this morning at bedside. No acute overnight events. Patient admitted for GI bleed after being transferred from [facility]. Patient on Coumadin for A. fib found to have INR of 13 years status post 2 PRBC. Denies any chest pain or difficulty breathing. Received second dose of vitamin K and Kentra. overnight. getting 3rd prbc. Denies new complaints. Exam General: In no acute distress. morbidly obese Respiratory exam: CTAB. no accessory muscle use, rales, rhonchi, wheezes Cardiovascular exam: RRR, +S1, +S2. no murmur, gallop, rubs. GI/Abdominal exam: Non-tender, Non-distended, normal bowel sounds, soft, no peritoneal signs. Extremities exam: no pedal edema, pulses palpable in b/l lower extremities. no calf tenderness Neurological exam: CN II-XII intact, AO X3, no focal deficits. Skin exam: No skin rash Assessment Acute UGI bleed Suppratherapeutic INR Acute blood loss anemia Melena Chronic Afib CAD Plan - To get 2 more PRBC. Couamdin reversed with vitamin K and K centra. F/u H&H, INR and trop after 2nd PRBC. Will consult GI - Keep NPO for now. Hemodynamically stable - afib rate controlled. Hold anticoagulation for now - EPCD for DVT ppx
[2018-08-01 14:02] LABS: Hemoglobin 7.7 g/dL (12.9-16.9)
[2018-08-01 15:34] LABS: INR 1.1
--- NOTE | 2018-08-01 15:48 | Gastroenterology Consult Note ---
<Clare Ramirez - Last Filed: 08/01/18 15:46> Date of Encounter: 08/01/18 Time of Encounter: 10:20 - Assessment and plan (1) Anemia Status: Chronic Assessment and plan: 73-year-old male who presents with coagulopathy related to Coumadin. INR was 13 and hemoglobin 6.2 on admission. He has been transfused and given vitamin K and KCentra, he needs EGD and possible colonoscopy. He does complain of melena. INR today was 9.5, we will proceed with scopes when INR is around 2. Qualifiers: Anemia type: unspecified type Qualified Code(s): D64.9 - Anemia, unspecified (2) UGI bleed Status: Suspected - Time Spent With Patient Total time spent is greater than 50% in coordination of care (as documented) at patient's floor/unit and/or counseling patient: GI History of Present Illness - Data of Consult Patient: new to practice Consult date: 08/01/18 Requesting Physician: Sophy Sood MD - Consult Narrative Reason for consult: upper GI bleed History of present illness: Mr. Rai is a 73 year old male who presents in transfer from [facility] ER for concerns of coagulopathy secondary to Coumadin and profound anemia. He presented to the ER there with complaints of chest pain/epigastric pain, extreme fatigue, weakness, and exertional dyspnea with chest pain. He was found to have evidence of profound anemia, guaiac positive stool, and INR of 13 and Hgb was 6.2. He received 2 units of blood at [facility] and a transfer request was made to [facility] for ongoing care and workup. Upon arrival to the intensive care unit, I saw patient shortly after he arrived. He has no chest pain or shortness of breath at this time. He denies any gross hematemesis or hemoptysis. He denies any hematochezia. However, he has had recurrent bouts of melena. He states his first symptoms he noticed were about 3 months ago, and he was noted to have significant dyspnea, fatigue, and occasional chest pain with any exertion. Symptoms were relieved with rest. He denies any fevers, chills, productive cough or sputum, vomiting, or diarrhea. He does admit to black stools on and off for years. He has been transfused and was given Vitamin K orally 10 mg, and kcentra. Pt is awake in bed but appears confused and drowsy at times. NSAIDS: asa 81mg Anticoagulants : coumadin Procedures: pt denies Past Med Surg Social Fam HX - Past Medical History Medical history: arthritis, atrial fibrillation, hyperlipidemia, hypertension, myocardial infarction Additional medical history: psoriasis Psychiatric history: depression - Past Surgical History Surgical History: coronary bypass (CABG), knee replacement Additional surgical history: spinal cord stimulator, right and left knee replacement 2008 - Social History Smoking Status: Former smoker Smokeless Tobacco Status: No Alcohol use: none Drug use: none - Family History Father Hx Family Cardiac Disorders: Yes Mother Living Status: Hx Family Cardiac Disorders: Yes Review of Systems: GI: as per [place] GENERAL: denies fever, has some chills EYES: denies yellow discoloration ENT: denies pain with swallowing or difficulty swallowing CARDIO: denies chest pain, palpitations RESP: Shortness of breath with exertion : denies change in color of urine NEURO: weakness HEME: Denies any bruising MS: denies joint pain, joint swelling or back pain. DERM: denies rash or itching PSYCH: Denies history of anxiety or depression - Constitutional Vitals: Temp Pulse Resp BP Pulse Ox 97.2 F L 77 16 120/87 100 08/01/18 12:19 08/01/18 14:00 08/01/18 14:00 08/01/18 14:00 08/01/18 14:00 Exam: CONSTITUTIONAL:alert, no acute distress.HEAD:normocephalic.EYES:no jaundice.NECK:no obvious swelling.HEART:regular rate and rhythm, no murmurs.LUNGS:bilateral fair air entry.ABDOMEN:non distended, soft, non [place], no masses palpable, no organomegaly, obese, .RECTAL EXAM:Deferred.EXTREMITIES:no clubbing, cyanosis or edema.SKIN:pallor noted, no stigmata of chronic liver disease.NEUROLOGIC:no obvious focal defect. Results - Labs CBC & Chem 7: 08/01/18 13:46 08/01/18 03:53 Labs: Last Result 08/01/18 08/01/18 08/01/18 03:53 03:53 13:46 Calcium 8.4 L Troponin I < 0.03 < 0.03 Entire Visit 0608/01/18 08/01/18 03:53 03:53 13:46 Hgb 6.2 L 7.7 L D Hct 20.3 L 24.0 L PT 108.4 H* 08/01/18 14:36 Hgb Hct PT 13.0 H D - ABG ABG results: PT/INR, D-dimer PT 13.0 Seconds (9.4-12.1) H D 08/01/18 14:36 Consult Discharge Plan - Plan Instructions: Warfarin (By mouth), Gastrointestinal Bleeding (DC) Referrals: Boni Campbell MD [Partnered Physician] - NONE,PCP [Primary Care Provider] - Prescriptions: Warfarin [Coumadin] 5 mg PO 1800 5 Days #5 tablet <Boni Campbell - Last Filed: 08/06/18 04:01> Date of Encounter: 08/02/18 - Time Spent With Patient Total time spent is greater than 50% in coordination of care (as documented) at patient's floor/unit and/or counseling patient: GI History of Present Illness - Data of Consult Requesting Physician: Sophy Sood MD - Consult Narrative History of present illness: Mr. Rai is a 73 year old male - Constitutional Vitals: Temp Pulse Resp BP Pulse Ox 98.1 F 80 18 132/57 97 08/03/18 13:10 08/03/18 14:16 08/03/18 14:16 08/03/18 14:16 08/03/18 11:45 Results - Labs CBC & Chem 7: 08/03/18 04:21 08/01/18 03:53 - ABG ABG results: PT/INR, D-dimer PT 11.9 Seconds (9.4-12.1) 08/02/18 01:51 - Attending Attestation Admitted with severe anemia in a setting of marked Warfarin toxicity - INR 13 and now down to 9.5. Severe anemia with hemoglobin of 6.2 on admission. Transfused. Plan EGD when INR down to <2. Etiology multifactoria. Will need to manage Warfarin dosing. I have personally performed a face to face evaluation on this patient. I have reviewed and agree with the care plan. History and Exam by me shows:
[2018-08-01 20:34] LABS: Hematocrit 24.6 % (37.5-50.1); Hemoglobin 7.9 g/dL (12.9-16.9)
[2018-08-02] MEDS: Pantoprazole 40 MG in 0.9 % Sodium Chloride Mini Bag 100 ML IVC SCH ×5 (00:03→23:29)
[2018-08-02 02:39] LABS: Hematocrit 25.8 % (37.5-50.1); Hemoglobin 8.1 g/dL (12.9-16.9)
[2018-08-02 03:06] LABS: Prothrombin Time 11.9 Seconds (9.4-12.1)
[2018-08-02] MEDS: Metoprolol XL (24 HR) Succ 25 MG TAB.ER.24H PO SCH (09:41)
[2018-08-02 10:30] LABS: Hematocrit 25.7 % (37.5-50.1); Hemoglobin 8.1 g/dL (12.9-16.9)
--- NOTE | 2018-08-02 10:58 | Internal Med Progress Note ---
Hospitalist Progress Note - Encounter Date of Encounter: 08/02/18 Time of Encounter: 07:50 - Subjective Interval History: Patient seen and examined this morning at bedside. No acute overnight events. Patient denies any chest pain difficulty breathing abdominal pain nausea vomiting or diarrhea. Has not had any BM yet - Exam Vitals: Temp Pulse Resp BP Pulse Ox 98.3 F 68 18 137/62 96 08/02/18 09:00 08/02/18 09:18 08/02/18 09:18 08/02/18 09:18 08/02/18 09:18 Exam: General: In no acute distress. morbidly obese Respiratory exam: CTAB. no accessory muscle use, rales, rhonchi, wheezes Cardiovascular exam: RRR, +S1, +S2. no murmur, gallop, rubs. GI/Abdominal exam: Non-tender, Non-distended, normal bowel sounds, soft, no peritoneal signs. Extremities exam: no pedal edema, pulses palpable in b/l lower extremities. no calf tenderness Neurological exam: CN II-XII intact, AO X3, no focal deficits. Skin exam: No skin rash - Assessment and Plan (1) CAD (coronary artery disease) Current Visit: Yes Status: Chronic (2) Atrial fibrillation Current Visit: Yes Status: Chronic (3) DVT prophylaxis Current Visit: Yes Status: Acute (4) UGI bleed Current Visit: Yes Status: Suspected (5) Warfarin-induced coagulopathy Current Visit: Yes Status: Acute - Summary of Assessment and Plan Summary of Assessment and Plan: Assessment Acute Possible UGI bleed Suppratherapeutic INR Acute blood loss anemia Melena Chronic Afib CAD Plan - s/p 4 PRBC with Hb not stable around 8 from 5.5. Couamdin reversed with vitamin K and K centra. INR now 1. Trop negative. c/w ppi - Keep NPO for now. Hemodynamically stable. Plan for EGD and/or colonoscopy with GI. - afib rate controlled. Hold anticoagulation for now. c/w home metoprolol. - EPCD for DVT ppx Internal Medicine: Result - Labs CBC & Chem 7: 08/02/18 09:50 08/01/18 03:53 Labs: Short CBC 08/01/18 08/01/18 08/02/18 Range/Units 13:46 20:17 01:51 Hgb 7.7 L D 7.9 L 8.1 L (12.9-16.9) g/dL Hct 24.0 L 24.6 L 25.8 L (37.5-50.1) % 08/02/18 Range/Units 09:50 Hgb 8.1 L (12.9-16.9) g/dL Hct 25.7 L (37.5-50.1) % Cardiac Enzymes 08/01/18 08/01/18 Range/Units 13:46 20:17 Troponin I < 0.03 < 0.03 (< 0.04) ng/mL - ABG Interpretation ABG results: PT/INR, D-dimer PT 11.9 Seconds (9.4-12.1) 08/02/18 01:51 Consult Discharge Plan - Plan Referrals: NONE,PCP [Primary Care Provider] - (1) CAD (coronary artery disease) Qualifiers: Coronary Disease-Associated Artery/Lesion type: bypass graft [place] vs. transplanted heart: [place] heart Associated angina: with stable angina Qualified Code(s): I25.708 - Atherosclerosis of coronary artery bypass graft(s), unspecified, with other forms of angina pectoris (2) Atrial fibrillation Qualifiers: Atrial fibrillation type: paroxysmal Qualified Code(s): I48.0 - Paroxysmal atrial fibrillation
[2018-08-02 16:20] LABS: Hematocrit 27.1 % (37.5-50.1); Hemoglobin 8.5 g/dL (12.9-16.9)
--- NOTE | 2018-08-02 16:34 | Anesthesia Evaluation PreOp ---
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) Other Medical History: Other (psoriasis) Anesthesia History: Past Anesthesia (CABG, SCS placement, B-TKR 2008) Alcohol Use: none Drug use: none Medications and Allergies Buspirone HCl [Buspar] 10 mg PO BID 02/11/15 [History] Oxybutynin Chloride [Ditropan Xl] 10 mg PO DAILY 02/11/15 [History] Sertraline [Zoloft] 150 mg PO DAILY 02/11/15 [History] Aspirin 81 mg PO DAILY 30 Days tab.chew 02/14/15 [Rx] Atorvastatin [Lipitor] 40 mg PO HS 30 Days tablet 02/14/15 [Rx] Allopurinol [Zyloprim 300 MG] 300 mg PO DAILY 11/25/17 [History] Metoprolol Succinate 25 mg PO DAILY 11/25/17 [History] Warfarin Sodium 12 mg PO 5XW 11/25/17 [History] Iron Heme Polypeptide [Proferrin] 180 mg PO 08/01/18 [History] Allergy/AdvReac Type Severity Reaction Status Date / Time No Known Allergies Allergy Verified 11/25/17 13:55 - Meds/Allergy Pre-op Review Medications Reviewed: Yes Allergies Reviewed: Yes Beta Blockers on Current Med List: No Anesthesia Results - Labs 08/02/18 16:06 08/01/18 03:53 Laboratory Results 08/02/18 08/02/18 09:50 16:06 Hgb 8.1 L 8.5 L Hct 25.7 L 27.1 L - Imaging Additional studies: ECHO Impressions: Technically sub-optimal due to body habitus. Definity echo contrast was used. Normal LV systolic function, LVEF 55-60%. Mild concentric left ventricular hypertrophy. Indeterminate diastolic function due to atrial fibrillation. Normal right ventricular structure and function. Mildly dilated left atrium. No significant valvular dysfunction. Unable to estimate RVSP due to lack of TR jet. Left Ventricular Wall Motion: Rest Echo Findings All wall segments showed normal motion. Anesthesia Exam Vital Signs Temp Pulse Resp BP Pulse Ox 08/02/18 16:00 73 18 90/67 98 06/27/19 15:42 98.8 F 08/02/18 15:30 87 08/02/18 15:00 75 20 119/67 99 08/02/18 14:00 92 20 100 08/02/18 13:00 72 18 142/62 100 08/02/18 12:00 77 20 127/75 98 08/02/18 11:39 97.3 F L 08/02/18 11:00 76 18 145/75 100 08/02/18 10:00 67 20 110/47 98 08/02/18 09:18 68 18 137/62 96 08/02/18 09:00 98.3 F 08/02/18 08:00 98.3 F 73 14 123/78 98 08/02/18 07:00 78 16 100 08/02/18 05:00 70 16 139/71 98 08/02/18 04:00 72 16 98 08/02/18 03:00 76 18 100 08/02/18 02:00 74 18 97 08/02/18 01:00 72 16 97 08/02/18 00:42 97.8 F 08/02/18 00:00 76 16 97 08/01/18 23:00 76 20 99/55 98 08/01/18 22:00 80 20 139/63 99 08/01/18 20:00 74 18 141/56 97 08/01/18 19:45 98.7 F 08/01/18 19:00 76 18 143/74 97 08/01/18 18:00 79 16 165/75 100 08/01/18 17:28 86 16 135/96 100 08/01/18 17:15 97.5 F L Intake and Output 08/02/18 08/02/18 08/02/18 07:59 15:59 23:59 Intake Total 200 / 300 100 / 300 Output Total 1050 / 1775 725 / 1775 Balance -850 / -1475 -625 / -1475 Intake: IV Fluids 200 / 300 100 / 300 Protonix 40 MG In 0.9 % Sodium 200 / 300 100 / 300 Chloride (Mini-Bag +) 100 ML @ 20 mls/hr IVC .Q5H FRED Rx#: [id number] Oral 0 / 0 Output: Urine 1050 / 1775 725 / 1775 Other: # Voids 0 Weight 121.1 kg Patient Weight 08/02/18 23:59 Weight 121.1 kg Height: 5'8" Weight: 266# bmI = 41 NPO (# of Hours): MNoc - HEENT Pupil (Motor): Pupils equal, EOMI Teeth: Normal Oral Opening: Greater than 3
[2018-08-02] MEDS ORDERED: Ringers Solution, Lactated 1,000 ML IVC SCH (18:00)
[2018-08-02] MEDS ORDERED: *HR* Propofol 200 MG/20 ML VIAL IVP ONE (18:17)
[2018-08-02] MEDS ORDERED: Lidocaine -MPF 2% 2 ML VIAL ONE (18:17)
[2018-08-03 04:49] LABS: Basophils % 0.4 %; Eosinophils # 0.4 K/mcL (0.0-0.6); Eosinophils % 4.7 %; Hematocrit 27.3 % (37.5-50.1); Hemoglobin 8.5 g/dL (12.9-16.9); Immature Granulocytes % 0.8 % (0-4); Lymphocytes # 1.2 K/mcL (0.6-4.6); Lymphocytes % 16.1 %; Mean Corpuscular HGB Conc 31.1 g/dL (31.6-35.5); Mean Corpuscular Hemoglobin 26.8 pg (28.0-33.3); Mean Corpuscular Volume 86.1 fL (83.0-100.0); Mean Platelet Volume 9.1 fL (9.4-12.4); Monocytes # 0.9 K/mcL (0.0-1.3); Monocytes % 12.1 %; Neutrophils # 5.1 K/mcL (1.6-8.9); Platelet Count 241 K/mcL (140-400); Red Blood Count 3.17 M/mcL (4.19-5.50); Red Cell Distribution Width 15.9 % (11.5-14.5); Segmented Neutrophils % 65.9 %; White Blood Count 7.7 K/mcL (4.3-11.1)
[2018-08-03] MEDS: Pantoprazole 40 MG in 0.9 % Sodium Chloride Mini Bag 100 ML IVC SCH (04:52)
[2018-08-03] MEDS: Metoprolol XL (24 HR) Succ 25 MG TAB.ER.24H PO SCH (07:53)
--- NOTE | 2018-08-03 08:15 | Internal Med Progress Note ---
Hospitalist Progress Note - Encounter Date of Encounter: 08/03/18 Time of Encounter: 08:15 - Exam Vitals: Temp Pulse Resp BP Pulse Ox 97.9 F 76 19 113/76 97 08/03/18 07:30 08/03/18 08:00 08/03/18 08:00 08/03/18 08:00 08/03/18 07:30 - Assessment and Plan (1) CAD (coronary artery disease) Current Visit: Yes Status: Chronic (2) Atrial fibrillation Current Visit: Yes Status: Chronic (3) DVT prophylaxis Current Visit: Yes Status: Acute (4) UGI bleed Current Visit: Yes Status: Suspected (5) Warfarin-induced coagulopathy Current Visit: Yes Status: Acute - Time Spent with Patient Total time spent is greater than 50% in coordination of care (as documented) at patient's floor/unit and/or counseling patient: Internal Medicine: Result - Labs CBC & Chem 7: 08/03/18 04:21 08/01/18 03:53 Labs: Short CBC 08/02/18 08/02/18 08/03/18 Range/Units 09:50 16:06 04:21 WBC 7.7 (4.3-11.1) K/mcL Hgb 8.1 L 8.5 L 8.5 L (12.9-16.9) g/dL Hct 25.7 L 27.1 L 27.3 L (37.5-50.1) % Plt Count 241 (140-400) K/mcL Neutrophils # 5.1 (1.6-8.9) K/mcL - ABG Interpretation ABG results: PT/INR, D-dimer PT 11.9 Seconds (9.4-12.1) 08/02/18 01:51 Consult Discharge Plan - Plan Referrals: NONE,PCP [Primary Care Provider] - (1) CAD (coronary artery disease) Qualifiers: Coronary Disease-Associated Artery/Lesion type: bypass graft [place] vs. transplanted heart: [place] heart Associated angina: with stable angina Qualified Code(s): I25.708 - Atherosclerosis of coronary artery bypass graft(s), unspecified, with other forms of angina pectoris (2) Atrial fibrillation Qualifiers: Atrial fibrillation type: paroxysmal Qualified Code(s): I48.0 - Paroxysmal atrial fibrillation
--- NOTE | 2018-08-03 13:00 | Discharge Summary ---
- NOTES TO OUTPATIENT PROVIDER Notes to Outpatient Provider: Patient will need to follow up INR and H&H in 3 days. We will need follow-up with gastroenterology in 2-3 weeks. Needs close follow-up given develop Coumadin related coagulopathy. Orders not resulted at time of discharge: Pending orders 08/01/18 06:00 ECG 12 lead ECG [ECG] AM 0600 Date of Encounter: 08/03/18 Time of Encounter: 11:58 - Discharge Diagnosis (1) CAD (coronary artery disease) Priority: Secondary Status: Chronic Qualifiers: Coronary Disease-Associated Artery/Lesion type: bypass graft [place] vs. transplanted heart: [place] heart Associated angina: with stable angina Qualified Code(s): I25.708 - Atherosclerosis of coronary artery bypass graft(s), unspecified, with other forms of angina pectoris (2) Atrial fibrillation Priority: Secondary Status: Chronic Qualifiers: Atrial fibrillation type: paroxysmal Qualified Code(s): I48.0 - Paroxysmal atrial fibrillation (3) DVT prophylaxis Priority: Secondary Status: Acute (4) UGI bleed Priority: Primary Status: Suspected (5) Warfarin-induced coagulopathy Priority: Primary Status: Acute (6) Acute blood loss anemia Priority: Primary Status: Acute Hospital course: Mr. Rai is a 73 year old male with past medical history of atrial fibrillation on Coumadin, hypertension, hyperlipidemia, CAD status post CABG came in from [facility] with Coumadin related coagulopathy with severe anemia. Patient was found to have positive stool occult and INR of 13. Patient received a dose of vitamin K and 2 PRBCs before transferred. Patient was given another dose of vitamin K and Kcentra to reverse the effect of Coumadin. He was also given 2 more PRBCs. Gastroenterology consult was obtained. Patient underwent upper endoscopy after INR normalized which showed reflux esophagitis, gastritis, nonbleeding gastric ulcer and nonbleeding erosive gastropathy. Per GI patient to double up Coumadin related coagulopathy and associated bleeding and was okay to be started back on warfarin but very close monitoring with PCP and monitoring INR. Patient hemoglobin has remained stable without any further episode of GI bleeding. He will be discharged home to follow-up with Coumadin clinic to monitor INR in 3 days. He was started on lower dose of Coumadin of 5 mg. He will need to follow closely with his own PCP to avoid this in future. He will follow up with gastroenterology within 2-3 weeks after discharge. Discharge discussed with: patient, nurse, reimbursement consultant - Time Spent with Patient Total time spent providing and/or coordinating discharge services: Time spent: Greater than 30 minutes (35) - Discharge Medications Prescriptions: New Warfarin [Coumadin] 5 mg PO 1800 5 Days #5 tablet Continued Sertraline [Zoloft] 150 mg PO DAILY Oxybutynin Chloride [Ditropan Xl] 10 mg PO DAILY Buspirone HCl [Buspar] 10 mg PO BID Aspirin 81 mg PO DAILY 30 Days tab.chew Atorvastatin [Lipitor] 40 mg PO HS 30 Days tablet Allopurinol [Zyloprim 300 MG] 300 mg PO DAILY Metoprolol Succinate 25 mg PO DAILY Iron Polysaccharide Complex [Pro Fe] 180 mg PO DAILY Discontinued Warfarin [Coumadin] 10 mg PO DAILY Warfarin [Coumadin] 2.5 mg PO DAILY Home Medications: Buspirone HCl [Buspar] 10 mg PO BID 02/11/15 [History] Oxybutynin Chloride [Ditropan Xl] 10 mg PO DAILY 02/11/15 [History] Sertraline [Zoloft] 150 mg PO DAILY 02/11/15 [History] Aspirin 81 mg PO DAILY 30 Days tab.chew 02/14/15 [Rx] Atorvastatin [Lipitor] 40 mg PO HS 30 Days tablet 02/14/15 [Rx] Allopurinol [Zyloprim 300 MG] 300 mg PO DAILY 11/25/17 [History] Metoprolol Succinate 25 mg PO DAILY 11/25/17 [History] Iron Polysaccharide Complex [Pro Fe] 180 mg PO DAILY 08/02/18 [History] Warfarin [Coumadin] 5 mg PO 1800 5 Days #5 tablet 08/03/18 [Rx] Allergies/Adverse Reactions: Allergy/AdvReac Type Severity Reaction Status Date / Time No Known Allergies Allergy Verified 08/02/18 19:46 Date of admission: 08/01/18 02:41 Primary care physician: PCP NONE Consults: 08/01/18 03:19 Consult to Gastroenterology [CONS] Routine Consulting Provider: Gastroenterology Mary Reason for Consult: UGI bleed; on Coumadin Call Completed: No Discharging clinician: Sophy Sood - Constitutional Vitals: Temp Pulse Resp BP Pulse Ox 97.9 F 72 16 121/95 97 08/03/18 07:30 08/03/18 11:45 08/03/18 11:45 08/03/18 11:45 08/03/18 11:45 Exam: General: In no acute distress. morbidly obese Respiratory exam: CTAB. no accessory muscle use, rales, rhonchi, wheezes Cardiovascular exam: RRR, +S1, +S2. no murmur, gallop, rubs. GI/Abdominal exam: Non-tender, Non-distended, normal bowel sounds, soft, no peritoneal signs. Extremities exam: no pedal edema, pulses palpable in b/l lower extremities. no calf tenderness Neurological exam: CN II-XII intact, AO X3, no focal deficits. Skin exam: old ecchymosis noted on b/l UE - Patient Status Disposition: Home, Self-Care - Discharge Instructions Follow Up With: NONE,PCP [Primary Care Provider] - Boni Campbell MD [Partnered Physician] - - Diet and Activity Activity: increase activity as tolerated
[2018-08-03 14:19] VITALS: BP 132/57
== END 2018-08-03 15:07 | disposition home or self-care (01) | DRG 813 ==
LOC: ICNU 02:41 → SUATTDRO 02:41
PROVIDERS: ADMIT Family Medicine; ATTEND Internal Medicine

== ENCOUNTER 2019-12-03 08:29 | Inpatient (IN) ==
[2019-12-03] MEDS: 0.9 % Sodium Chloride 1,000 ML IVC SCH (09:03)
[2019-12-03] MEDS ORDERED: ISOVUE-370 200 ML INFUS..BTL ONE ×2 (09:08→10:12)
[2019-12-03] MEDS ORDERED: *HR* Heparin 10,000 UNIT/10 ML VIAL ONE ×2 (09:08→10:06)
[2019-12-03 09:26] LABS: INR 2.1; Prothrombin Time 23.7 Seconds (9.4-12.1)
[2019-12-03] MEDS ORDERED: Protamine Sulfate 50 MG/5 ML VIAL IVP ONE (10:41)
[2019-12-03] MEDS ORDERED: *HR* Vasopressin 20 UNIT/ML VIAL ONE (12:09)
[2019-12-03] MEDS ORDERED: *HR* FentaNYL (PF) 100 MCG/2 ML VIAL ONE (12:09)
[2019-12-03] MEDS ORDERED: Perflutren Lipid Microsphere 1.3 ML in 0.9 % Sodium Chloride 8.7 ML IVP PRN (12:33)
[2019-12-03] MEDS ORDERED: EPHEDrine 50 MG/ML VIAL IVP ONE (13:27)
[2019-12-03] MEDS ORDERED: Ondansetron 4 MG/2 ML VIAL IVP ONE (13:27)
[2019-12-03] MEDS ORDERED: Lidocaine -MPF 2% 5 ML VIAL SQ ONE (13:27)
[2019-12-03] MEDS ORDERED: *HR* Propofol 200 MG/20 ML VIAL IVP ONE (13:27)
[2019-12-03] MEDS ORDERED: *HR* Succinylcholine 200 MG/10 ML VIAL IVP ONE (13:27)
[2019-12-03] MEDS ORDERED: *HR* Water for inj. (sterile) Vial IV ONE (13:27)
[2019-12-03] MEDS ORDERED: *HR* Rocuronium Bromide 50 MG/5 ML VIAL IVP ONE (13:27)
[2019-12-03] MEDS ORDERED: *HR* Phenylephrine 10 MG/ML VIAL IVC ONE (13:27)
[2019-12-03] MEDS ORDERED: *HR* Warfarin 10 MG TABLET PO SCH (18:00)
[2019-12-04] MEDS: 0.9 % Sodium Chloride 1,000 ML IVC SCH (04:44)
[2019-12-04 05:40] LABS: Basophils % 0.2 %; Eosinophils % 0.1 %; Hematocrit 38.6 % (37.5-50.1); Hemoglobin 11.9 g/dL (12.9-16.9); Immature Granulocytes % 0.6 % (0-4); Lymphocytes # 0.7 K/mcL (0.6-4.6); Lymphocytes % 7.4 %; Mean Corpuscular HGB Conc 30.8 g/dL (31.6-35.5); Mean Corpuscular Hemoglobin 27.8 pg (28.0-33.3); Mean Corpuscular Volume 90.2 fL (83.0-100.0); Mean Platelet Volume 11.2 fL (9.4-12.4); Monocytes # 0.6 K/mcL (0.0-1.3); Monocytes % 5.7 %; Neutrophils # 8.4 K/mcL (1.6-8.9); Platelet Count 200 K/mcL (140-400); Red Blood Count 4.28 M/mcL (4.19-5.50); Red Cell Distribution Width 20.2 % (11.5-14.5); White Blood Count 9.8 K/mcL (4.3-11.1)
[2019-12-04 05:41] LABS: INR 2.9; Prothrombin Time 33.1 Seconds (9.4-12.1)
[2019-12-04 05:58] LABS: BUN/Creatinine Ratio 38 (6-26); Blood Urea Nitrogen 29 mg/dL (8-23); Calcium 8.2 mg/dL (8.6-10.3); Carbon Dioxide 23 mEq/L (23-29); Chloride 105 mEq/L (98-107); Glucose 148 mg/dL (70-105); Osmolality,Calculated 289 (280-300); Sodium 135 mEq/L (136-145); eGFR For African Americans > 60 (> 60); eGFR For Non-African Americans > 60 (> 60)
[2019-12-04 07:36] VITALS: BP 140/70
[2019-12-04] MEDS ORDERED: Aspirin 81 MG TAB.CHEW PO SCH (09:00)
[2019-12-04] MEDS ORDERED: Furosemide 20 MG TABLET PO SCH (09:00)
== END 2019-12-04 13:28 | disposition home or self-care (01) | DRG 274 ==
LOC: INVDIALAB 08:29 → 2NNU 14:17
PROVIDERS: ADMIT Internal Medicine Cardiovascular Disease; ATTEND Internal Medicine Cardiovascular Disease